=== PATIENT | male | born 1950 | race Caucasian/White ===

== ENCOUNTER 2022-12-21 23:43 | Inpatient (IN) | payer MEDICARE ==
[~2022-12-21] VITALS: Ht 175.3 cm; Wt 89.8 kg
[~2022-12-21 23:43] MED LIST: ALPR0.255 PO; CARV6.252 PO; CYCL10TA9 PO; HYDR-3980 PO; MOME13HF INH
--- NOTE | 2022-12-22 00:07 | NUR ---
EMANUEL FROM [facility] C/O ABD DISTENSION X2 DAYS, LLE EDEMA/SCROTUM SWELLING SINCE AM. F/C INSERTED 10PM. PT A/OX2; BASELINE. TOLERATING R/A WELL WITH NO RESP DISTRESS. SAFETY MEASURES IN PLACE.
--- NOTE | 2022-12-22 00:28 | NUR ---
urine and blood collected, sent to lab
--- NOTE | 2022-12-22 00:40 | NUR ---
urine output 2,200 ml
--- NOTE | 2022-12-22 00:41 | NUR ---
pt taken to ct via celine
[2022-12-22 00:44] LABS: BASOPHILS # (AUTO) 0.2 K/uL (0.0-0.2); EOSINOPHILS % (AUTO) 0.2 % (0.0-6.0); HEMATOCRIT 30 % (39-51); HEMOGLOBIN 9.9 g/dL (13.5-17.5); LYMPHOCYTES # (AUTO) 1.3 K/uL (0.8-4.8); LYMPHOCYTES % (AUTO) 6.1 % (20.0-44.0); MEAN CORPUSCULAR HGB CONC 33 g/dl (31.0-36.0); MEAN CORPUSCULAR VOLUME 98 fL (80-96); MONOCYTES # (AUTO) 1.7 K/uL (0.1-1.30); NEUTROPHILS % (AUTO) 84.7 % (43.0-81.0); PLATELET COUNT (AUTO) 332 K/uL (150-450); RED BLOOD CELL COUNT(AUTO) 3.06 MIL/uL (4.5-6.0); WHITE BLOOD COUNT (AUTO) 21.3 K/uL (4.3-11.0)
[2022-12-22 00:45] LABS: BILIRUBIN,URINE NEGATIVE (NEGATIVE); COLOR,URINE YELLOW (YELLOW); LEUKOCYTE ESTERASE ,URINE 1+ (NEGATIVE); NITRITE, URINE NEGATIVE (NEGATIVE); PROTEIN,URINE NEGATIVE (NEGATIVE); UGLUCOSE NEGATIVE (NEGATIVE); UROBILINOGEN,URINE 0.2 EU/dL (0.2)
[2022-12-22 00:46] LABS: BACTERIA,URINE Rare /HPF (None Seen); SQUAMOUS EPITHELIAL CELL,UR Few /HPF (None Seen)
[2022-12-22 01:00] LABS: CALCIUM, SERUM 9.3 mg/dL (8.5-10.1); CARBON DIOXIDE 16 mmol/L (21-32); CHLORIDE 103 mmol/L (98-107); CREATININE 5.3 mg/dL (0.6-1.3); GLUCOSE 133 mg/dL (74-106); POTASSIUM 4.5 mmol/L (3.5-5.1); SODIUM SERUM 136 mmol/L (136-145); UREA NITROGEN, BLOOD 86 mg/dL (7-18)
[2022-12-22 01:05] LABS: ALANINE AMINOTRANSFERASE 31 U/L (12-78); ALBUMIN 2.3 g/dL (3.4-5.0); ALKALINE PHOSPHATASE 112 U/L (46-116); ASPARTATE AMINOTRANSFERASE 24 U/L (15-37); BILIRUBIN,DIRECT 0.3 mg/dL (0.0-0.2); LIPASE 112 U/L (73-393); TOTAL PROTEIN, SERUM 6.9 g/dL (6.4-8.2)
--- NOTE | 2022-12-22 01:45 | NUR ---
US tech at bedside
[2022-12-22] MEDS ORDERED: CEFTRIAXONE 1GM BAG (ER ONLY) 1 GM/50 ML PIGGYBACK IV ONE (02:30)
[2022-12-22] MEDS ORDERED: CEFTRIAXONE 1GM BAG (ER ONLY) 50 ML IV ONE (02:47)
--- NOTE | 2022-12-22 02:53 | NUR ---
RM 321-1
[2022-12-22] MEDS ORDERED: MAG HYDROX/AL HYDROX/SIMETH 30 ML UDC PO PRN (03:00)
[2022-12-22] MEDS ORDERED: MAGNESIUM HYDROXIDE 30 ML UDC PO PRN (03:00)
[2022-12-22] MEDS ORDERED: Z GUARD REMEDY 4 OZ OINT TP PRN (03:00)
[2022-12-22] MEDS ORDERED: IV NS 0.9% 1,000 ML IV PRN (03:00)
[2022-12-22] MEDS ORDERED: HYDROCODONE/APAP 5/325MG TABLET PO PRN (03:00)
[2022-12-22] MEDS ORDERED: ONDANSETRON HCL/PF 4 MG/2 ML VIAL IVP PRN (03:00)
--- NOTE | 2022-12-22 03:04 | NUR ---
RM 321-2. REPORT GIVEN TO DEBORA GA
[2022-12-22] MEDS ORDERED: ENOXAPARIN SODIUM 100 MG/ML DISP.SYRIN SQ SCH (03:30)
--- NOTE | 2022-12-22 03:30 | NUR ---
LIVESTOCK FARMER NOTES ADMITTED A 72 Y/O MALE FROM [facility] WITH C/C OF ABD DISTENTION, BLE EDEMA AND SCROTAL EDEMA. CAME FROM ER VIA GURNEY. ON ROOM AIR SATURATING WELL NO SOB OR NOTED AT THIS TIME, TRANSFERRED PATIENT TO BED SAFELY AND SECURED. WITH IV ACCESS AT RAC #20G -SL AND LEFT WRIST #24G -SL PATENT AND INTACT NO SWELLING OR INFILTRATION NOTED AT THIS TIME; WITH FRANCISCO CATHETER FR 16 CAME FROM SNF CONNECTED TO URINE BAG WITH 600ML URINE OUTPUT; SKIN ASSESSMENT DONE PICTURES TAKEN AND RECORDED, BED BATH DONE. UNABLE TO GET HISTORY TO THE PATIENT PATIENT IS CONFUSED AND UNABLE TO COMPREHEND, HISTORY TAKEN FROM PREVIOUS RECORDS, ATTACHED PATIENT TO TELE MONITORING DEVICE, VITAL SIGN ARE TAKEN AND RECORDED, ALL ATTENDING PHYSICIAN INFORMED, ALL ADMISSION ORDERS CARRIED OUT; PATIENT ORIENTED TO THE UNIT, KEPT PATIENT WARM AND COMFORTABLE; KEPT CALL LIGHT WITHIN AT REACH; KEPT SIDE RAILS UP X 2 ALL THE TIME; WILL CONTINUE TO MONITOR.
--- NOTE | 2022-12-22 03:31 | NUR ---
pt transferred to [facility] 321-2 via acls protocol. vs wnl.
--- NOTE | 2022-12-22 05:30 | NUR ---
RN NOTES MRSA DONE AND SENT TO LABORATORY.
--- NOTE | 2022-12-22 06:34 | NUR ---
RN MS CLOSING NOTES PATIENT IS IN BED, A/O X 1 ABLE TO UNDERSTAND BELARUSIAN, CONFUSED. ON ROOM AIR SATURATING WELL NO SOB/ NOTED AT THIS TIME. WITH IV ACCESS AT RAC #20G AND LEFT FA #14G ON SL PATENT AND INTACT NO SWELLING OR INFILTRATION NOTED, NO PAIN OR DISCOMFORT NOTED, ATTACHED TO TELE MONITOR DEVICE, ALL DUE MEDICATIONS GIVEN, ALL NEEDS ATTENDED, KEPT BED ON MODERATE HIGH BACK REST POSITION, KEPT SIDE RAILS UP X 2 ALL THE TIME. KEPT CALL LIGHT WITHIN AT REACH. ENDORSED TO AM SHIFT FOR VIVEK.
--- NOTE | 2022-12-22 07:20 | NUR ---
RN OPENING NOTE RECEIVED PATIENT IN BED AWAKE, A/O X1, VERBALLY RESPONSIVE. NO SIGNS OF ACUTE DISTRESS NOTED. ON ROOM AIR, TOLERATING WELL, BREATHING EVEN AND UNLABORED. DENIES ANY PAIN AT THIS TIME. NOTED WITH IV ACCESS ON RIGHT AC #20G AND LEFT WRIST #24G, INTACT, SALINE LOCKED. WITH F/C INTACT DRAINING MATHEW COLORED URINE. NOTED WITH EDEMA ON LEFT LOWER EXTREMITY AND SCROTAL AREA. SAFETY MEASURE IN PLACE. BED IN LOW AND LOCKED POSITION, SIDE RAILS UP X2, CALL LIGHT PLACED WITHIN EASY REACH. WILL CONTINUE TO MONITOR PATIENT.
[2022-12-22 07:30] VITALS: BP 116/71; TEMP 97.4; O2SAT 99
--- NOTE | 2022-12-22 07:45 | NUR ---
RN NOTE PATIENT NOTED PULLED PERIPHERAL LINE ON RIGHT AC. PRESSURE DRESSING APPLIED TO SITE. NEW PERIPHERAL LINE INSERTED ON RIGHT WRIST #22G, WITH GOOD BLOOD RETURN. COVERED WITH TRANSPARENT DRESSING. PATIENT STARTED ON NS @75ML/HR.
[2022-12-22] MEDS: PANTOPRAZOLE 40 MG TABLET.DR PO SCH (08:06)
[2022-12-22] MEDS ORDERED: DOCU100C36 PO (08:38)
[2022-12-22] MEDS ORDERED: MULT-754 PO (08:38)
[2022-12-22] MEDS ORDERED: FOLI0.8T3 PO (08:38)
[2022-12-22] MEDS ORDERED: PANT40TA2 PO (08:38)
[2022-12-22] MEDS ORDERED: THIA100T74 PO (08:38)
[2022-12-22] MEDS ORDERED: NORM210S TP (08:38)
[2022-12-22] MEDS ORDERED: MAGN400O6 PO (08:38)
[2022-12-22] MEDS ORDERED: ACET-868 PO (08:38)
[2022-12-22] MEDS ORDERED: MAG30ORA PO (08:38)
[2022-12-22] MEDS ORDERED: CYAN-51 PO (08:38)
[2022-12-22] MEDS ORDERED: ALLA266C2 TP (08:38)
[2022-12-22] MEDS ORDERED: TRIA80CR12 TP (08:38)
[2022-12-22] MEDS ORDERED: AMIN887L21 PO (08:38)
[2022-12-22] MEDS ORDERED: NA P133E RC (08:38)
[2022-12-22] MEDS ORDERED: DIVA125C2 PO (08:38)
[2022-12-22] MEDS ORDERED: ASCO-340 PO (08:38)
--- NOTE | 2022-12-22 08:58 | NUR ---
WOUND CARE CONSULT: PT PRESENTS WITH SACRAL INTACT DEEP TISSUE INJURY, RASH/SKIN CONDITION TO BACK AND CHEST WELL LEFT LEG WITH WEEPING EDEMA TO SCROTUM, PRESENT ON ADMISSION. DR FERNANDEZ CALLED FOR SURGICAL CONSULT. DEFER TO PMD FOR RASH/SKIN CONDITION, UNKNOWN ETIOLOGY. DISCUSSED SKIN PROTECTION WITH NURSING STAFF. FRANCISCO CATHETER NOTED. PT IS ON ANTONY ISOFLEX LOW AIRLOSS BED. IN AGREEMENT WITH PLAN OF CARE. Addendum: 12/22/22 at 0900 by PATRICIA DICKENS WNDNU Amended: Links added.
[2022-12-22] MEDS ORDERED: APIXABAN 5 MG TABLET PO SCH (09:00)
--- NOTE | 2022-12-22 10:10 | NUR ---
RN NOTE GWENDOLYN WILSON HERE AND MADE AWARE REGARDING PATIENT'S LEFT LOWER EXTREMITY ULTRASOUND(EXTENSIVE OCCLUSIVE THROMBUS OF LCFV), PER MD HE'LL PUT ORDER FOR HEPARIN. AWAITING ORDER.
[2022-12-22 11:30] VITALS: BP 95/62; TEMP 97.6; O2SAT 95
--- NOTE | 2022-12-22 11:30 | NUR ---
RN Note Found Right wrist 22G pulled out during rounding. No redness or bleeding, catheter was intact. Inserted new IV site on right forearm 22G, patent, intact, and flushing well. Will continue monitoring. Addendum: 12/23/22 at 0222 by TAMARA HOPKINS RN Correction: the time was 2330
--- NOTE | 2022-12-22 13:50 | NUR ---
RN NOTE PATIENT PULLED OUT IV FLUIDS AND TRYING TO PULL OUT PERIPHERAL LINE AND FRANCISCO CATHETER. TRIED TO REDIRECT PATIENT BUT UNABLE DUE TO PATIENT'S POOR COGNITION. INFORMED MD AND RECEIVED ORDER FOR BILATERAL SOFT WRIST RESTRAINTS FOR SAFETY AND REDUCE RISKS OF PATIENT INJURY. ORDER CARRIED OUT.
[2022-12-22 16:00] VITALS: BP 109/76; TEMP 98; O2SAT 96
[2022-12-22] MEDS ORDERED: NA PHOS,M-B/NA PHOS,DI-BA 1 EA ENEMA RC PRN (16:00)
[2022-12-22] MEDS: DIVALPROEX SODIUM 125 MG CAP.SPRINK PO SCH (16:15)
[2022-12-22] MEDS ORDERED: PROSTAT (PYXIS) 30 ML UDC PO SCH (17:00)
[2022-12-22] MEDS: FOLIC ACID 1 MG TABLET PO SCH (17:10)
[2022-12-22] MEDS ORDERED: HEPARIN SODIUM, PORCINE 5000 UNITS/1 ML VIAL IV ONE (18:00)
[2022-12-22] MEDS: HEPARIN INFUSION/D5W 500 ML IV PRN (18:03)
--- NOTE | 2022-12-22 18:50 | NUR ---
RN CLOSING NOTE PATIENT IN BED AWAKE, A/O X1, CONFUSED. NO SIGNS OF ACUTE DISTRESS NOTED. STABLE ON ROOM AIR, NO SOB NOTED, BREATHING EVEN AND UNLABORED. IV ACCESS ON RIGHT WRIST #22G, INTACT AND PATENT RUNNING NS @90ML/HR AND LEFT FOREARM #22G, INTACT AND PATENT WITH HEPARIN DRIP ONGOING. F/C INTACT DRAINING MATHEW COLORED URINE. STILL NOTED WITH EDEMA ON LEFT LOWER EXTREMITY AND SCROTAL AREA. BILATERAL SOFT WRIST RESTRAINTS IN PLACE TO PREVENT PULLING OUT LINES. SAFETY MEASURE MAINTAINED. BED IN LOW AND LOCKED POSITION, SIDE RAILS UP X3, CALL LIGHT PLACED WITHIN EASY REACH. WILL ENDORSE TO NEXT SHIFT FOR CONTINUITY OF CARE.
--- NOTE | 2022-12-22 19:30 | NUR ---
RN Opening Note Pt awake, appears comfortable in bed. A/O*1, confused, follow only simple directions. No s/s of pain noted this time. On RA, breathing even, unlabored, no distress or SOB noted. IV access right wrist 22G SL, patent and intact. IV access left AC 22G SL, patent and intact, running Heparin drip at 1550units/H. hospital monitor captured sinus tachy at 110bpm. Pt has FC, draining well. Restraint on bilateral upper extremities. Checked CMS, intact. Provided hydration and reposition. Fall and safety precaution measures in place, bed alarm on, bed in low and locked position, call lights and table in easy reach, and side rails up*3. Will continue monitoring.
[2022-12-22 20:00] VITALS: BP 139/82; TEMP 97.7; O2SAT 93
--- NOTE | 2022-12-22 20:40 | NUR ---
RN Note Received a call from lab for critical lab value, lactic acid 2. Contacted . aware of the lab result.
[2022-12-22] MEDS: CEFTRIAXONE 1 G in IV D5W 50 ML IV SCH (20:57)
[2022-12-23] VITALS: BP_SYST 129; BP_SYST 143; BP_DIAS 75; BP_DIAS 80; TEMP 97.6; TEMP 98; O2SAT 94; O2SAT 99
--- NOTE | 2022-12-23 01:41 | NUR ---
RN Note Received a call for critical lab value of aPPT, 98.5 sec, from lab at 0127. Per Heparin protocol order. Hold heparin drip for one hour, then continue the drips at the decreased rate of 1300 units/h. Will continue monitoring. Addendum: 12/23/22 at 0150 by TAMARA HOPKINS RN Addition: Dr and Charge nurse aware of lab value and orders.
[2022-12-23 04:00] VITALS: BP 119/74; TEMP 97.7; O2SAT 94
[2022-12-23 06:20] LABS: BASOPHILS # (AUTO) 0.1 K/uL (0.0-0.2); BASOPHILS % (AUTO) 0.5 % (0.0-2.0); EOSINOPHILS % (AUTO) 1.1 % (0.0-6.0); HEMATOCRIT 30 % (39-51); HEMOGLOBIN 9.6 g/dL (13.5-17.5); LYMPHOCYTES # (AUTO) 1.5 K/uL (0.8-4.8); LYMPHOCYTES % (AUTO) 6.3 % (20.0-44.0); MEAN CORPUSCULAR HGB CONC 32 g/dl (31.0-36.0); MEAN CORPUSCULAR VOLUME 100 fL (80-96); MONOCYTES # (AUTO) 1.9 K/uL (0.1-1.30); MONOCYTES % (AUTO) 8.3 % (2.0-12.0); NEUTROPHILS # (AUTO) 19.2 K/uL (1.8-8.9); NEUTROPHILS % (AUTO) 83.8 % (43.0-81.0); PLATELET COUNT (AUTO) 382 K/uL (150-450); RED BLOOD CELL COUNT(AUTO) 3.01 MIL/uL (4.5-6.0)
--- NOTE | 2022-12-23 07:21 | NUR ---
RN OPENING NOTE RECEIVED PATIENT IN BED AWAKE, PATIENT IS A/O X1, VERBALLY RESPONSIVE. DENIES PAIN OR DISCOMFORT AT THIS TIME. ON ROOM AIR, TOLERATING WELL, BREATHING EVEN AND UNLABORED. NO SIGNS OF ACUTE DISTRESS NOTED. WITH IV ACCESS ON THE LEFT FA G 22 WITH ONGOING HEPARIN DRIP RUNNING AT 1300UNITS/H INFUSING WELL. WITH IV ACCESS ON THE RIGHT FORE ARM G 20 WITH ONGOING IVF OF NS RUNNING AT 90ML/HR INFUSING WELL.L WITH FRANCISCO CATHETER TO URINE BAG WITH LIGHT ORANGE TO LIGHT YELLOW URINE DRAINING VIA GRAVITY. WITH EDEMA ON THE LEFT LEG TO FOOT AND NOTED SCROTAL EDEMA. SAFETY MEASURE IN PLACE WITH BED IN LOW AND LOCKED POSITION, SIDE RAILS UP X2, CALL LIGHT PLACED WITHIN EASY REACH. WILL ENDORSE TO NEXT SHIFT FOR CONTINUITY OF CARE.
[2022-12-23 07:27] LABS: THYROID STIMULATING HORMONE 1.925 uIU/mL (0.358-3.74)
--- NOTE | 2022-12-23 07:39 | NUR ---
RN Closing Note Pt dosing off, appears comfortable in bed. A/O*1, confused, follow only simple directions. No s/s of pain noted this time. On RA, breathing even, unlabored, no distress or SOB noted. IV access right forearm 22G SL, patent and intact. IV access left AC 22G, patent and intact, running Heparin drip at 1300units/H. secured entrance monitor captured sinus tachy at 116bpm. Pt has FC, draining well and emptied. Restraint on bilateral upper extremities checked per protocol, CMS intact. Provided hydration, ROM and reposition as needed and per protocol. All needs attended. Fall and safety precaution measures in place and maintained, bed alarm on, bed in low and locked position, call lights and table in easy reach, and side rails up*3. Endorsed to day shift.
[2022-12-23 08:03] LABS: CALCIUM, SERUM 9.2 mg/dL (8.5-10.1); CREATININE 1.7 mg/dL (0.6-1.3); PHOSPHORUS 5.4 mg/dL (2.5-4.9); POTASSIUM 3.5 mmol/L (3.5-5.1)
[2022-12-23 08:12] LABS: MAGNESIUM 2.3 mg/dL (1.8-2.4)
--- NOTE | 2022-12-23 09:02 | NUR ---
MEAT AND POULTRY INSPECTOR NOTE LATEST PTT RESULT IS 60. NO CHANGES NECESSARY FOR HEPARIN DRIP. HEPARIN DRIP MAINTAINED AT 1300U/HR. NEXT PTT AT 1430. NO SIGNS AND SYMPTOMS OF BLEEDING NOTED. WILL CONTINUE WITH PLAN OF CARE.
[2022-12-23] MEDS: DOCUSATE SODIUM 100 MG CAPSULE PO SCH (09:41)
[2022-12-23] MEDS: ASCORBIC ACID 500 MG TABLET PO SCH (09:41)
[2022-12-23] MEDS: MULTIVITAMINS,THERAGRAN 1 UDTAB TABLET PO SCH (09:41)
[2022-12-23] MEDS: DIVALPROEX SODIUM 125 MG CAP.SPRINK PO SCH ×3 (09:42→17:19)
[2022-12-23] MEDS: THIAMINE HCL 100 MG TABLET PO SCH (09:42)
[2022-12-23] MEDS: CYANOCOBALAMIN 500 MCG TABLET PO SCH (09:42)
[2022-12-23] MEDS: PANTOPRAZOLE 40 MG TABLET.DR PO SCH (09:43)
[2022-12-23] MEDS: TRIAMCINOLONE ACETONIDE 0.1% CR 15 GM TUBE TP SCH (12:32)
[2022-12-23] MEDS: PROSOURCE / PROSTAT (PYXIS) 30 ML UDC PO SCH ×2 (12:33→17:19)
[2022-12-23] MEDS: HEPARIN INFUSION/D5W 500 ML IV PRN (12:52)
[2022-12-23] MEDS: IV NS 0.9% 1,000 ML IV PRN (15:11)
[2022-12-23 15:30] VITALS: BP 126/73; TEMP 98.5; O2SAT 97
--- NOTE | 2022-12-23 15:44 | NUR ---
CATALOGUE AND SPECIAL PRODUCTS MANAGER NOTE LATEST PTT 42.3. HEPARIN DRIP ADJUSTED AND INCREASED TO 1450 (FROM 1300) PER HOSPITAL PROTOCOL. NO SIGNS OF BLEEDING NOTED AT THIS TIME. WILL CONTINUE WITH PLAN OF CARE.
[2022-12-23] MEDS: FOLIC ACID 1 MG TABLET PO SCH (17:19)
[2022-12-23] MEDS: ACETAMINOPHEN 325 MG TABLET PO PRN (17:19)
[2022-12-23 18:29] LABS: CREATININE, URINE 87.8 MG/DL (30.0-125.0)
--- NOTE | 2022-12-23 19:00 | NUR ---
KINDERGARTEN AIDE NOTE PATIENT ENDORSED TO NEXT SHIFT FOR CONTINUITY OF CARE. IN STABLE CONDITION. WITH NO SIGNS OF BLEEDING NOTED.
--- NOTE | 2022-12-23 19:30 | NUR ---
NUCLEAR SECURITY OFFICER OPENING NOTES - RECEIVED PATIENT IN BED. A/O X1, CONFUSED AND ORIENTED TO NAME ONLY. BREATHING EVEN AND NON-LABORED ON ROOM AIR. NO C/O PAIN AT THIS TIME. HAS TELE MONITOR READING SINUS TACHYCARDIA WITH BBB AT 113 BPM. HAS THE FF IV ACCESS: RIGHT FOREARM #22G WITH NS RUNNING AT 90 ML/HR AND LEFT FOREARM #22G WITH HEPARIN DRIP INFUSING AT 1450 UNITS/HR. NO S/S OF INFILTRATION NOTED. HAS INDWELLING FRANCISCO CATHETER DRAINING CLEAR MATHEW URINE TO BAG BY GRAVITY. HAS BILATERAL SOFT WRIST RESTRAINTS. SEVERE EDEMA NOTED ON LEFT LOWER EXTREMITY. BRUISING NOTED ON BILATERAL UPPER ARM. SAFETY PRECAUTIONS IN PLACE: BED LOCKED AND IN LOW POSITION, SIDE RAILS UP X3, CALL LIGHT WITHIN REACH. WILL CONTINUE PLAN OF CARE.
[2022-12-23 20:00] VITALS: BP 121/61; TEMP 98.7; O2SAT 98
[2022-12-23 20:22] VITALS: BP 135/73; TEMP 101.8; O2SAT 88
[2022-12-23] MEDS: CEFTRIAXONE 1 G in IV D5W 50 ML IV SCH (20:35)
--- NOTE | 2022-12-23 22:37 | NUR ---
PTT 70.6, CALLED PX TO VERIFY IF WE WILL KEEP THE SAME RATE OR DECREASE DRIP. SPOKE WITH KEITH, KEEP THE SAME RATE FOR NOW AND RE-CHECK PTT AFTER 6 HOURS.
[2022-12-24] VITALS (7 sets, daily range): BP systolic 100–145; BP diastolic 51–81; TEMP 98.1–98.8; O2SAT 74–99
[2022-12-24] MEDS: IV NS 0.9% 1,000 ML IV PRN ×3 (03:20→17:39)
[2022-12-24] MEDS: TEMAZEPAM 15 MG CAPSULE PO PRN (03:20)
--- NOTE | 2022-12-24 03:40 | NUR ---
PRN RESTORIL 15 MG GIVEN TO PATIENT. THERE WERE TIMES THAT HE CLOSES HIS EYES BUT UPON CHECKING AGAIN, HE IS STILL AWAKE AND REMOVING BLANKETS.
--- NOTE | 2022-12-24 04:30 | NUR ---
PTT 53.6, NO CHANGE IN HEPARIN DRIP RATE. NO BLEEDING NOTED.
--- NOTE | 2022-12-24 07:10 | NUR ---
MEDICAL LIAISON CLOSING NOTES - PATIENT RESTING IN BED, FREQUENT RE-ORIENTATION NEEDED. NO SOB OR , TOLERATING ROOM AIR WELL. NO C/O PAIN OR DISCOMFORT. AFEBRILE. TELE MONITOR SHOWS SINUS TACHYCARDIA AT 116 BPM. LEFT FOREARM AND RIGHT FOREARM IV ACCESS INTACT, PATENT AND FLUSHING. ALL DUE MEDS GIVEN AND NEEDS ATTENDED. PERINEAL CARE RENDERED. ELEVATED LLE, TURNED AND REPOSITIONED EVERY 2 HOURS. CLOUDY MATHEW URINE OUTPUT NOTED. CIRCULATION AND SKIN COLOR CHECKED AND WNL. STRICT ASPIRATION PRECAUTION OBSERVED. SAFETY PRECAUTIONS MAINTAINED. WILL ENDORSE TO AM RN FOR VIVEK.
--- NOTE | 2022-12-24 07:20 | NUR ---
PRODUCTION GRIP CLOSING NOTES - RECEIVED PATIENT RESTING IN BED, FREQUENT RE-ORIENTATION NEEDED. NO SOB OR , TOLERATING ROOM AIR WELL. NO C/O PAIN OR DISCOMFORT. AFEBRILE. TELE MONITOR SHOWS SINUS TACHYCARDIA AT 117 BPM. LEFT FOREARM AND RIGHT FOREARM IV ACCESS C/D/I. . STRICT ASPIRATION PRECAUTION OBSERVED. SAFETY PRECAUTIONS MAINTAINED. WILL CONTINUE TO MONITOR Addendum: 12/24/22 at 0924 by INDERJIT DE LA CRUZ JR, RN OPENING NOTES
[2022-12-24] MEDS: PANTOPRAZOLE 40 MG TABLET.DR PO SCH (08:20)
[2022-12-24] MEDS: DOCUSATE SODIUM 100 MG CAPSULE PO SCH (08:32)
[2022-12-24] MEDS: MULTIVITAMINS,THERAGRAN 1 UDTAB TABLET PO SCH (08:32)
[2022-12-24] MEDS: ASCORBIC ACID 500 MG TABLET PO SCH (08:33)
[2022-12-24] MEDS: THIAMINE HCL 100 MG TABLET PO SCH (08:33)
[2022-12-24] MEDS: CYANOCOBALAMIN 500 MCG TABLET PO SCH (08:33)
[2022-12-24] MEDS: DIVALPROEX SODIUM 125 MG CAP.SPRINK PO SCH ×3 (08:33→16:23)
[2022-12-24] MEDS: PROSOURCE / PROSTAT (PYXIS) 30 ML UDC PO SCH ×2 (08:38→16:41)
[2022-12-24] MEDS: TRIAMCINOLONE ACETONIDE 0.1% CR 15 GM TUBE TP SCH (08:38)
[2022-12-24 09:22] LABS: BASOPHILS # (AUTO) 0.2 K/uL (0.0-0.2); BASOPHILS % (AUTO) 0.9 % (0.0-2.0); EOSINOPHILS % (AUTO) 3.9 % (0.0-6.0); HEMATOCRIT 28 % (39-51); HEMOGLOBIN 8.9 g/dL (13.5-17.5); LYMPHOCYTES # (AUTO) 1.6 K/uL (0.8-4.8); LYMPHOCYTES % (AUTO) 8.3 % (20.0-44.0); MEAN CORPUSCULAR HGB CONC 32 g/dl (31.0-36.0); MEAN CORPUSCULAR VOLUME 99 fL (80-96); MONOCYTES # (AUTO) 1.7 K/uL (0.1-1.30); MONOCYTES % (AUTO) 8.6 % (2.0-12.0); NEUTROPHILS # (AUTO) 15.4 K/uL (1.8-8.9); NEUTROPHILS % (AUTO) 78.3 % (43.0-81.0); PLATELET COUNT (AUTO) 309 K/uL (150-450); RED BLOOD CELL COUNT(AUTO) 2.83 MIL/uL (4.5-6.0); WHITE BLOOD COUNT (AUTO) 19.7 K/uL (4.3-11.0)
[2022-12-24 09:47] LABS: PHOSPHORUS 2.9 mg/dL (2.5-4.9); POTASSIUM 3.4 mmol/L (3.5-5.1)
[2022-12-24] MEDS: FOLIC ACID 1 MG TABLET PO SCH (17:00)
--- NOTE | 2022-12-24 18:37 | NUR ---
AMBULATORY SERVICES REPRESENTATIVE CLOSING NOTES - PATIENT RESTING IN BED, FREQUENT RE-ORIENTATION NEEDED. NO SOB OR , TOLERATING ROOM AIR WELL. NO C/O PAIN OR DISCOMFORT. AFEBRILE. TELE MONITOR SHOWS SINUS TACHYCARDIA AT 120 BPM. LEFT FOREARM AND RIGHT FOREARM IV ACCESS INTACT, PATENT AND FLUSHING. ALL DUE MEDS GIVEN AND NEEDS ATTENDED. PERINEAL CARE RENDERED. ELEVATED LLE, TURNED AND REPOSITIONED EVERY 2 HOURS. CLOUDY MATHEW URINE OUTPUT NOTED. CIRCULATION AND SKIN COLOR CHECKED AND WNL. STRICT ASPIRATION PRECAUTION OBSERVED. SAFETY PRECAUTIONS MAINTAINED. WILL ENDORSE TO PM NURSE FOR VIVEK.
--- NOTE | 2022-12-24 19:30 | NUR ---
CRISIS INTERVENTION COUNSELOR OPENING NOTES RECEIVED PT RESTING IN BED. A/O X1, ORIENTED TO PERSON ONLY. ON RA WITH NO SOB OR DISTRESS NOTED, NO C/O PAIN OR DISCOMFORT. AFEBRILE. ON DATABASE SOFTWARE TECHNICIAN SHOWS SINUS TACHYCARDIA AT 120 BPM. LEFT FOREARM AND RIGHT FOREARM IV ACCESS INTACT, PATENT AND FLUSHING, CURRENTLY RUNNING NS @ 90 ML/HR AND HEPARIN DRIP @ 1450 U/HR. FRANCISCO CATHETER IN PLACE. BILATERAL SOFT WRIST RESTRAINTS IN PLACE. SAFETY MEASURES IN PLACE: BED LOCKED AND IN LOW POSITION, SIDE RAILS UP X4, BED ALARM ON, CALL LIGHT AND TRAY TABLE WITHIN REACH.
[2022-12-24] MEDS: HEPARIN INFUSION/D5W 500 ML IV PRN (19:31)
[2022-12-24] MEDS: CEFTRIAXONE 1 G in IV D5W 50 ML IV SCH (20:41)
[2022-12-25 00:35] VITALS: BP 123/63; TEMP 98; O2SAT 96
[2022-12-25 04:03] LABS: BASOPHILS # (AUTO) 0.1 K/uL (0.0-0.2); BASOPHILS % (AUTO) 0.5 % (0.0-2.0); EOSINOPHILS % (AUTO) 4.3 % (0.0-6.0); HEMATOCRIT 26 % (39-51); HEMOGLOBIN 8.2 g/dL (13.5-17.5); LYMPHOCYTES # (AUTO) 2.3 K/uL (0.8-4.8); LYMPHOCYTES % (AUTO) 11.1 % (20.0-44.0); MEAN CORPUSCULAR HGB CONC 32 g/dl (31.0-36.0); MEAN CORPUSCULAR VOLUME 99 fL (80-96); MONOCYTES # (AUTO) 2.2 K/uL (0.1-1.30); MONOCYTES % (AUTO) 10.9 % (2.0-12.0); NEUTROPHILS # (AUTO) 14.9 K/uL (1.8-8.9); NEUTROPHILS % (AUTO) 73.2 % (43.0-81.0); PLATELET COUNT (AUTO) 302 K/uL (150-450); RED BLOOD CELL COUNT(AUTO) 2.57 MIL/uL (4.5-6.0); WHITE BLOOD COUNT (AUTO) 20.4 K/uL (4.3-11.0)
[2022-12-25 04:22] LABS: ALBUMIN 1.8 g/dL (3.4-5.0); BILIRUBIN,TOTAL 0.6 mg/dL (0.2-1.0); CALCIUM, SERUM 8.5 mg/dL (8.5-10.1); CREATININE 1.2 mg/dL (0.6-1.3); MAGNESIUM 1.9 mg/dL (1.8-2.4); PHOSPHORUS 3.1 mg/dL (2.5-4.9); POTASSIUM 3.6 mmol/L (3.5-5.1); TOTAL PROTEIN, SERUM 5.9 g/dL (6.4-8.2)
[2022-12-25 04:52] VITALS: BP 118/66; TEMP 97.2; O2SAT 96
[2022-12-25] MEDS: IV NS 0.9% 1,000 ML IV PRN ×2 (05:25→16:37)
[2022-12-25] MEDS: HEPARIN INFUSION/D5W 500 ML IV PRN (06:30)
--- NOTE | 2022-12-25 06:30 | NUR ---
RN NOTE: LATEST PTT 77.9. HEPARIN DRIP ADJUSTED AND DECREASED BY 170 U/HR. TOTAL RATE DECREASED FROM 1450 TO 1300 PER HOSPITAL PROTOCOL. NO SIGNS OF BLEEDING NOTED AT THIS TIME. NEXT PTT DRAW AT 1230. WILL CONTINUE WITH PLAN OF CARE.
--- NOTE | 2022-12-25 07:00 | NUR ---
ELECTRICAL AND ELECTRONIC ASSEMBLER CLOSING NOTES PT AWAKE IN BED. A/O X1, ORIENTED TO PERSON ONLY. STABLE ON RA WITH NO SOB OR DISTRESS NOTED, NO C/O PAIN OR DISCOMFORT. AFEBRILE. ON RN REHABILITATION SHOWS SINUS TACHYCARDIA AT 114 BPM. LEFT FOREARM #22G AND RIGHT FOREARM #22G, INTACT, PATENT, FLUSHING, CURRENTLY RUNNING NS @ 90 ML/HR AND HEPARIN DRIP @ 1300 U/HR. FRANCISCO CATHETER IN PLACE, TOTAL 800 ML OUTPUT. BILATERAL SOFT WRIST RESTRAINTS IN PLACE, CIRCULATION WNL. TURNED AND REPOSITIONED PER PROTOCOL. ALL CARE PROVIDED AND MEDS TOLERATED WELL. SAFETY MEASURES MAINTAINED: BED LOCKED AND IN LOW POSITION, SIDE RAILS UP X4, BED ALARM ON, CALL LIGHT AND TRAY TABLE WITHIN REACH. WILL ENDORSE VIVEK TO DAY SHIFT NURSE.
[2022-12-25 07:06] LABS: AFP, TUMOR MARKER <1.8 ng/mL (0.0-8.4)
--- NOTE | 2022-12-25 07:23 | NUR ---
CRESTER OPENING NOTES RECEIVED PT AWAKE IN BED IN NO ACUTE SIGNS OF DISTRESS. HOB ELEVATED. A/O X1 TO NAME ONLY. ABLE TO COMMUNICATE VERBALLY WITH CONFUSION AND FORGETFULNESS. NO C/O PAIN OR DISCOMFORTS AT THIS TIME. B/L SOFT WRIST RESTRAINTS IN PLACE, CIRCULATION WNL. ON ROOM AIR, TOLERATING WELL, BREATHING EVEN AND UNLABORED. ON TELE- MONITOR CURRENTLY READS ST, HR 113 BPM, NO C/O CARDIAC DISTRESS VOICED AT THIS TIME. HEPARIN DRIP AT 1300 U/HR (26ML/HR) INFUSING WELL TO IV ACCESS ON LFA G#22 AND IVF OF NS @90 ML/HR INFUSING WELL TO RFA G#22. FRANCISCO CATHETER IN PLACE WITH SLIGHTLY DARK YELLOW URINE OUTPUT NOTED. SAFETY MEASURES IN PLACE: BED LOCKED AND IN LOW POSITION, SIDE RAILS UP X3, BED ALARM ON, CALL LIGHT WITHIN REACH. WILL CONTINUE TO MONITOR PT.
[2022-12-25 07:30] VITALS: BP 127/72; TEMP 99.6; O2SAT 96
[2022-12-25] MEDS: DOCUSATE SODIUM 100 MG CAPSULE PO SCH (08:32)
[2022-12-25] MEDS: CYANOCOBALAMIN 500 MCG TABLET PO SCH (08:32)
[2022-12-25] MEDS: THIAMINE HCL 100 MG TABLET PO SCH (08:32)
[2022-12-25] MEDS: MULTIVITAMINS,THERAGRAN 1 UDTAB TABLET PO SCH (08:32)
[2022-12-25] MEDS: PANTOPRAZOLE 40 MG TABLET.DR PO SCH (08:32)
[2022-12-25] MEDS: ASCORBIC ACID 500 MG TABLET PO SCH (08:32)
[2022-12-25] MEDS: DIVALPROEX SODIUM 125 MG CAP.SPRINK PO SCH ×3 (08:33→16:32)
[2022-12-25] MEDS: PROSOURCE / PROSTAT (PYXIS) 30 ML UDC PO SCH ×3 (08:35→16:03)
[2022-12-25] MEDS: TRIAMCINOLONE ACETONIDE 0.1% CR 15 GM TUBE TP SCH (08:35)
[2022-12-25 09:07] LABS: *SPE A/G RATIO 0.5 (0.7-1.7); *SPE ALPHA-1-GLOBULIN 0.5 g/dL (0.0-0.4); *SPE ALPHA-2-GLOBULIN 1.1 g/dL (0.4-1.0); *SPE M-SPIKE 0.8 g/dL (Not Observed)
[2022-12-25 11:30] VITALS: BP 135/77; TEMP 99; O2SAT 93
--- NOTE | 2022-12-25 13:09 | NUR ---
RN NOTES PATIENT LATEST PTT 69.3, NO CHANGE IN HEPARIN DRIP PER HEPARIN DRIP PROTOCOL. REMAINS AT 1300 U/HR(26ML/HR). NEXT PTT DRAW WILL BE TOMORROW MORNING AT 1700.
[2022-12-25 16:00] VITALS: BP 152/71; TEMP 100.4; O2SAT 95
[2022-12-25] MEDS: ACETAMINOPHEN 325 MG TABLET PO PRN (16:03)
--- NOTE | 2022-12-25 16:06 | NUR ---
RN NOTES PT NOTED WITH ELEVATED TEMP 100.4F, PRN TYLENOL 650MG PO ADMINISTERED AT 1603. COOLING MEASURES IMPLEMENTED. WILL CONTINUE TO MONITOR.
[2022-12-25] MEDS: FOLIC ACID 1 MG TABLET PO SCH (17:23)
--- NOTE | 2022-12-25 18:35 | NUR ---
MACHINE LEAD BURNER CLOSING NOTES PT IN BED AWAKE AT THIS TIME. HOB ELEVATED. A/O X1 TO NAME ONLY. ABLE TO COMMUNICATE VERBALLY WITH CONFUSION AND FORGETFULNESS. PT WITH B/L SOFT WRIST RESTRAINTS IN PLACE, CIRCULATION WNL. TOLERATING ROOM AIR WELL, BREATHING EVEN AND UNLABORED, NO ACUTE RESPIRATORY DISTRESS NOTED DURING THE DAY. PT ON HEPARIN DRIP AT 1300 U/HR (26ML/HR) INFUSING WELL TO IV ACCESS ON LFA G#22 AND IVF OF NS @90 ML/HR INFUSING WELL TO RFA G#22. ON TELE- MONITOR CURRENTLY READS ST, HR 111 BPM, NO C/O CARDIAC DISTRESS VOICED. FRANCISCO CATHETER IN PLACE WITH SLIGHTLY DARK YELLOW URINE OUTPUT NOTED, FRANCISCO CARE DONE. ALL NEEDS/CARE PROVIDED WELL. SAFETY MEASURES IN PLACE: BED LOCKED AND IN LOW POSITION, SIDE RAILS UP X3, BED ALARM ON, CALL LIGHT WITHIN REACH. WILL ENDORSE VIVEK TO ATMOSPHERIC DRIER TENDER NURSE.
--- NOTE | 2022-12-25 19:36 | NUR ---
GRAIN OPERATOR OPENING NOTES RECEIVED PT IN BED AWAKE AOX1 CONFUSED,ON RM AIR MYRA WELL SAT 98% NO SOB/DISTRESS NOTED,NO SIGN OF PAIN/DISCOMFORT AT THIS TIME,B/L SOFT WRIST RESTRAINTS IN PLACE, CIRCULATION WNL.ON HEPARIN DRIP AT 1300 U/HR (26ML/HR) INFUSING WELL TO IV ACCESS ON LFA G#22 AND IVF OF NS @90 ML/HR INFUSING WELL TO RFA G#22. FRANCISCO CATHETER IN PLACE WITH YELLOW URINE OUTPUT NOTED. SAFETY MEASURES IN PLACE: BED LOCKED AND IN LOW POSITION, SIDE RAILS UP X3, BED ALARM ON, CALL LIGHT WITHIN REACH. WILL CONTINUE TO MONITOR.
[2022-12-25 20:00] VITALS: BP 123/74; TEMP 98.9; O2SAT 95
[2022-12-25] MEDS: CEFTRIAXONE 1 G in IV D5W 50 ML IV SCH (21:03)
[2022-12-26] VITALS: BP 130/72; TEMP 98.2; O2SAT 97
[2022-12-26] MEDS: IV NS 0.9% 1,000 ML IV PRN (03:18)
[2022-12-26 04:00] VITALS: BP_SYST 108; BP_SYST 134; BP_DIAS 57; BP_DIAS 77; TEMP 101.4; TEMP 98; O2SAT 96; O2SAT 98
[2022-12-26 06:34] LABS: BASOPHILS # (AUTO) 0.1 K/uL (0.0-0.2); BASOPHILS % (AUTO) 0.5 % (0.0-2.0); EOSINOPHILS % (AUTO) 4.2 % (0.0-6.0); HEMATOCRIT 28 % (39-51); HEMOGLOBIN 8.7 g/dL (13.5-17.5); LYMPHOCYTES # (AUTO) 1.6 K/uL (0.8-4.8); LYMPHOCYTES % (AUTO) 8.4 % (20.0-44.0); MEAN CORPUSCULAR HGB CONC 31 g/dl (31.0-36.0); MEAN CORPUSCULAR VOLUME 101 fL (80-96); MONOCYTES # (AUTO) 1.7 K/uL (0.1-1.30); MONOCYTES % (AUTO) 8.9 % (2.0-12.0); NEUTROPHILS # (AUTO) 15.2 K/uL (1.8-8.9); PLATELET COUNT (AUTO) 241 K/uL (150-450); RED BLOOD CELL COUNT(AUTO) 2.75 MIL/uL (4.5-6.0); WHITE BLOOD COUNT (AUTO) 19.4 K/uL (4.3-11.0)
--- NOTE | 2022-12-26 06:54 | NUR ---
NURSE HEAD CLOSING NOTES; PT IN BED AWAKE AOX1 CONFUSED,ON RM AIR MYRA WELL SAT 97% NO SOB/DISTRESS NOTED,NO SIGN OF PAIN/DISCOMFORT DURING SHIFT,B/L SOFT WRIST RESTRAINTS IN PLACE,NO REDNESS NOTED, CIRCULATION WNL.ON HEPARIN DRIP AT 1300 U/HR (26ML/HR) INFUSING WELL TO IV ACCESS ON LFA G#22 AND IVF OF NS @90 ML/HR INFUSING WELL TO RFA G#22.DUE MEDS GIVEN ORDER, FRANCISCO CATHETER IN PLACE WITH DARK YELLOW URINE OUTPUT 1300ML.KEPT PT CLEANED AND DRY AT ALL TIME,HOB ELEVATED MYRA, SAFETY MEASURES IN PLACE: BED LOCKED AND IN LOW POSITION, SIDE RAILS UP X3, BED ALARM ON, CALL LIGHT WITHIN REACH. WILL ENDORSED TO NEXT SHIFT.
[2022-12-26 06:59] LABS: CALCIUM, SERUM 8.7 mg/dL (8.5-10.1); MAGNESIUM 1.8 mg/dL (1.8-2.4); PHOSPHORUS 3.2 mg/dL (2.5-4.9); POTASSIUM 3.1 mmol/L (3.5-5.1)
--- NOTE | 2022-12-26 07:22 | NUR ---
ANESTHESIOLOGY RESIDENT OPENING NOTES PATIENT RECEIVED IN BED AWAKE, A/O X1 TO NAME ONLY. ABLE TO COMMUNICATE VERBALLY WITH CONFUSION AND FORGETFULNESS, DENIES PAIN OR DISCOMFORTS AT THIS TIME. PT WITH B/L SOFT WRIST RESTRAINTS IN PLACE, CIRCULATION WNL. ON ROOM AIR, TOLERATING WELL, BREATHING EVEN AND UNLABORED. ON TELE- MONITOR READS ST, HR 101 BPM AT THIS TIME., NO C/O CARDIAC DISTRESS VOICED AT THIS TIME. HEPARIN DRIP AT 1300 U/HR (26ML/HR) INFUSING WELL TO IV ACCESS ON LFA G#22 AND IVF OF NS @90 ML/HR INFUSING WELL TO RFA G#22. FRANCISCO CATHETER IN PLACE WITH SLIGHTLY DARK YELLOW URINE OUTPUT NOTED. SAFETY MEASURES IN PLACE: BED LOCKED AND IN LOW POSITION, SIDE RAILS UP X3, BED ALARM ON, CALL LIGHT WITHIN REACH. WILL CONTINUE TO MONITOR PT.
[2022-12-26] MEDS: HEPARIN INFUSION/D5W 500 ML IV PRN (07:31)
--- NOTE | 2022-12-26 07:35 | NUR ---
RN NOTES RECEIVED PATIENT LATEST PTT 63.7 THIS MORNING. NO CHANGE IN HEPARIN DRIP RATE PER HEPARIN DRIP PROTOCOL. REMAINS AT 1300 U/HR(26ML/HR). NEXT PTT DRAW WILL BE TOMORROW MORNING AT 1700.
[2022-12-26 08:00] VITALS: BP 123/69; TEMP 98.8; O2SAT 96
[2022-12-26] MEDS: ASCORBIC ACID 500 MG TABLET PO SCH (08:04)
[2022-12-26] MEDS: DOCUSATE SODIUM 100 MG CAPSULE PO SCH (08:04)
[2022-12-26] MEDS: PANTOPRAZOLE 40 MG TABLET.DR PO SCH (08:04)
[2022-12-26] MEDS: THIAMINE HCL 100 MG TABLET PO SCH (08:05)
[2022-12-26] MEDS: DIVALPROEX SODIUM 125 MG CAP.SPRINK PO SCH ×3 (08:05→16:47)
[2022-12-26] MEDS: MULTIVITAMINS,THERAGRAN 1 UDTAB TABLET PO SCH (08:05)
[2022-12-26] MEDS: CYANOCOBALAMIN 500 MCG TABLET PO SCH (08:05)
[2022-12-26 08:07] LABS: *ANA ANTI-CENTROMERE B AB 0.2 AI (0.0-0.9); *ANA ANTI-DNA(DS) AB, QN <1 IU/mL (0-9); *ANA ANTI-JO-1 <0.2 AI (0.0-0.9); *ANA ANTICHROMATIN ANTIBODY <0.2 AI (0.0-0.9); *ANA RNP ANTIBODIES 0.8 AI (0.0-0.9); *ANA SJOGREN'S ANTI-SS-A <0.2 AI (0.0-0.9); *ANA SJOGREN'S ANTI-SS-B <0.2 AI (0.0-0.9); *ANAANTI-SCLERODERMA-70 AB <0.2 AI (0.0-0.9); *ANASMITH AB <0.2 AI (0.0-0.9)
[2022-12-26] MEDS: PROSOURCE / PROSTAT (PYXIS) 30 ML UDC PO SCH ×3 (08:08→16:47)
[2022-12-26] MEDS: TRIAMCINOLONE ACETONIDE 0.1% CR 15 GM TUBE TP SCH (08:44)
[2022-12-26] MEDS: IV 1/2NS 1000 ML 1,000 ML IV PRN ×2 (11:29→21:50)
[2022-12-26] MEDS: POTASSIUM CHLORIDE 20 MEQ TAB.PRT.SR PO SCH ×2 (12:08→13:25)
--- NOTE | 2022-12-26 16:45 | NUR ---
RN NOTES PT IS FOR CT ABDOMEN PELVIS WITH CONTRAST TOMORROW MORNING (12/27/22). CALLED PT'S BROTHER, KATIE, OBTAINED TELEPHONE CONSENT. BROTHER STATED THAT HE'S NOT SURE IF THE PT HAD CONTRAST BEFORE.
--- NOTE | 2022-12-26 16:50 | NUR ---
RN NOTES CALLED [facility] OF RADIOLOGY DEPT, INFORMED OF THE PROCEDURE (CT ABD/PELVIS WITH CONTRAST TOMORROW AM)
[2022-12-26] MEDS: FOLIC ACID 1 MG TABLET PO SCH (17:21)
--- NOTE | 2022-12-26 18:45 | NUR ---
DIRECTOR TELEVISION NEWS CLOSING NOTES PT IN BED AT LYING AT SEMI-TREVIÑO'S POSITION. AWAKE, A/O X1-2. ABLE TO COMMUNICATE VERBALLY WITH CONFUSION AND FORGETFULNESS. PT WITH B/L SOFT WRIST RESTRAINTS IN PLACE, SKIN AND CIRCULATION WNL. ON ROOM AIR, TOLERATING WELL, BREATHING EVEN AND UNLABORED, NO ACUTE DISTRESS NOTED. PT ON HEPARIN DRIP AT 1300 U/HR (26ML/HR) INFUSING WELL TO IV ACCESS ON LFA G#22 AND IVF OF 1/2 NS AT 80 ML/HR INFUSING WELL TO RFA G#22. ON TELE-MONITOR CURRENTLY READS ST, HR 111 BPM, NO C/O CARDIAC DISTRESS VOICED. FRANCISCO IN PLACE WITH SLIGHTLY DARK YELLOW URINE OUTPUT NOTED, FRANCISCO CARE DONE. PT TURNED AND REPOSITIONED Q 2HRS AND PRN. ALL NEEDS AND CARE PROVIDED WELL. SAFETY MEASURES KEPT IN PLACE: BED LOCKED AND IN LOW POSITION, SIDE RAILS UP X3, BED ALARM ON, CALL LIGHT WITHIN REACH. WILL ENDORSE POC TO HEAD SAMPLER NURSE.
--- NOTE | 2022-12-26 19:10 | NUR ---
DYE RANGE FEEDER OPENING NOTE PT IS SITTING IN HIS BED WITH HOB ELEVATED AT 45 DEGREE. HE IS ON RA, TOLERATED WELL. NO S/S OF DISTRESS OR SOB. PT IS AWAKE AND ALERT, AO X 1 OR 2. PT HAS TWO IV ACCESSES: ONE IS AT HIS L FA, #22G, INFUSING 1/2 NS @80 ML/HR; AND ANOTHER ONE IS AT HIS L FA, INFUSING HEPARIN DRIP AT THE RATE OF 1300 U / HR (26 ML/HR). PT DOSE NOT HAVE S/S OF BLEEDING. IV SITES ARE PATENT AND INTACT. PT IS ON EXTERNAL COSMETIC ACCOUNT COORDINATOR, CURRENT READING ON THE MONITOR IS SR / ST WITH HR AT 90S TO 100S. PT HAS FRANCISCO CATHETER DRAINING CLOUDY,DARK YELLOW COLOR URINE FREELY. PT IS ON SOFT RESTRAINTS AT WRISTS BILATERAL, CHECKED THE CIRCULATION; NO ISSUES. SAFETY MEASURES ARE IN PLACED: BED IN LOWEST AND LOCKED POSITION; SIDE RAILS UP X 2; BED ALARM IS SET; CALL LIGHT AND TABLE ARE WITHIN REACH. WILL CONTINUE MONITORING THE PT AND PROVIDE THE CARE PT NEEDS.
[2022-12-26 19:38] VITALS: BP 140/80; TEMP 99.4; O2SAT 96
[2022-12-26 20:00] VITALS: BP_SYST 110; BP_SYST 134; BP_DIAS 62; BP_DIAS 71; TEMP 97.6; TEMP 98.4; O2SAT 95; O2SAT 96
[2022-12-26] MEDS: MORPHINE SULFATE INJ 2 MG/ML DISP.SYRIN IV PRN (21:11)
--- NOTE | 2022-12-26 21:12 | NUR ---
BULK LOADER NOTE PT STATED THAT HE WAS HAVING PAIN AT HIS L LOWER EXTREMITY AND HIS PAIN LEVEL IS 8/10. PRN IV MEDICATION, MORPHINE 4 MG, ADMINISTERED TO THE PT PER MD ORDER.
[2022-12-26] MEDS: TEMAZEPAM 15 MG CAPSULE PO PRN (22:29)
--- NOTE | 2022-12-26 22:29 | NUR ---
BARBACK NOTE PT HAS DIFFICULTIES TO FALL ASLEEP. PRN MEDICATION, RESTORIL 15 MG, ADMINISTERED TO THE PT PER MD ORDER.
[2022-12-27] VITALS: BP_SYST 110; BP_SYST 127; BP_DIAS 62; BP_DIAS 70; TEMP 97.6; TEMP 98.1; TEMP 98.7; O2SAT 95; O2SAT 96
[2022-12-27 01:06] LABS: IMMUNOGLOBULIN A, SERUM 476 mg/dL (61-437); IMMUNOGLOBULIN G, SERUM 802 mg/dL (603-1613); IMMUNOGLOBULIN M, SERUM 29 mg/dL (20-172)
[2022-12-27] MEDS: HEPARIN INFUSION/D5W 500 ML IV PRN ×2 (02:52→06:58)
--- NOTE | 2022-12-27 03:00 | NUR ---
BUILDING STONECUTTER NOTE CHANGED HEPARIN BAG AND CONTINUE THE INFUSING AT 1300 U/ HR (26 ML/H).
[2022-12-27 04:00] VITALS: BP 131/75; TEMP 98.4; TEMP 98.9; O2SAT 95
[2022-12-27 05:46] LABS: BASOPHILS # (AUTO) 0.1 K/uL (0.0-0.2); BASOPHILS % (AUTO) 0.4 % (0.0-2.0); EOSINOPHILS % (AUTO) 4.2 % (0.0-6.0); HEMATOCRIT 28 % (39-51); HEMOGLOBIN 8.8 g/dL (13.5-17.5); LYMPHOCYTES # (AUTO) 1.8 K/uL (0.8-4.8); LYMPHOCYTES % (AUTO) 11.6 % (20.0-44.0); MEAN CORPUSCULAR HGB CONC 32 g/dl (31.0-36.0); MEAN CORPUSCULAR VOLUME 100 fL (80-96); MONOCYTES # (AUTO) 1.2 K/uL (0.1-1.30); MONOCYTES % (AUTO) 7.5 % (2.0-12.0); NEUTROPHILS # (AUTO) 11.8 K/uL (1.8-8.9); NEUTROPHILS % (AUTO) 76.3 % (43.0-81.0); PLATELET COUNT (AUTO) 232 K/uL (150-450); RED BLOOD CELL COUNT(AUTO) 2.81 MIL/uL (4.5-6.0); WHITE BLOOD COUNT (AUTO) 15.5 K/uL (4.3-11.0)
--- NOTE | 2022-12-27 06:30 | NUR ---
MANUFACTURING ACCOUNTANT NOTE RECEIVED PT'S LAB RESULT FOR PTT: 76.1. DOCUMENTED IN PT'S CHART AND RECALCULATED THE DOSAGE ACCORDING TO WEIGHT BASED HEPARIN DOSING PROTOCOL. CURRENT HEPARIN IS 1300 U/HR. BASED ON THE PROTOCOL, NEED TO DECREASE 2 UNIT/KG/H, 150 U/HR. THE NEW HEPARIN DRIP RATE IS 1150 U/HR. ORDERED PTT AT 1200 ON 12/27/22 PER PROTOCOL. REDUCED PT'S INFUSING RATE TO 1150 U/H.
--- NOTE | 2022-12-27 07:01 | NUR ---
RADIO ELECTRONICS TECHNICIAN NOTE CURRENT HEPARIN DRIP RATE IS 1150 U/H (23 ML/H). NEXT PTT IS SCHEDULED AT 1200 ON 12/27/22. WILL ENDORSE NEXT SHIFT NURSE TO FOLLOW UP.
--- NOTE | 2022-12-27 07:13 | NUR ---
DIE FINISHER CLOSING NOTE PT IS SLEEPING IN BED WITH HOB ELEVATED AT 45 DEGREE; EASILY BEING AROUSED. HE IS ON 2 LPM OF OXYGEN VIA NC, TOLERATED WELL. NO S/S OF DISTRESS OR SOB. PT IS AWAKE AND ALERT, AO X 1 OR 2. PT HAS TWO IV ACCESSES: ONE IS AT HIS L FA, #22G, INFUSING 1/2 NS @80 ML/HR; AND ANOTHER ONE IS AT HIS L FA, INFUSING HEPARIN DRIP AT THE RATE OF 1150 U / HR (23 ML/HR). PT DOES NOT HAVE S/S OF BLEEDING. IV SITES ARE PATENT AND INTACT. PT IS ON EXTERNAL BUSINESS AND MARKETING TEACHER, CURRENT READING ON THE MONITOR IS SR / ST WITH HR AT 90S TO 100S. PT HAS FRANCISCO CATHETER DRAINING CLOUDY,DARK YELLOW COLOR URINE FREELY. PT IS ON SOFT RESTRAINTS AT WRISTS BILATERAL, CHECKED THE CIRCULATION; NO ISSUES. SAFETY MEASURES ARE IN PLACED: BED IN LOWEST AND LOCKED POSITION; SIDE RAILS UP X 2; BED ALARM IS SET; CALL LIGHT AND TABLE ARE WITHIN REACH. WILL ENDORSE NEXT SHIFT NURSE FOR CONTINUING PT CARE.
--- NOTE | 2022-12-27 07:30 | NUR ---
RESIDENTIAL TREATMENT STAFF NOTES PT IN BED, AWAKE, ALERT AND VERBALLY RESPONSIVE, WITH PERIODS OF CONFUSION, NO SIGN OF PAIN, BREATHING PATTERN NORMAL AND NON LABORED, ON HERPARIN DRIP, NO S/S OF BLEEDING, KEPT WARM AND COMFORTABLE IN BED.
[2022-12-27 07:34] VITALS: BP 127/67; TEMP 96.4; O2SAT 100
[2022-12-27] MEDS ORDERED: POTASSIUM CHLORIDE 20 MEQ TAB.PRT.SR PO ONE (08:00)
[2022-12-27 08:07] LABS: CALCIUM, SERUM 8.5 mg/dL (8.5-10.1); CREATININE 0.7 mg/dL (0.6-1.3); POTASSIUM 3.4 mmol/L (3.5-5.1)
[2022-12-27] MEDS: PANTOPRAZOLE 40 MG TABLET.DR PO SCH (09:09)
[2022-12-27] MEDS: THIAMINE HCL 100 MG TABLET PO SCH (09:10)
[2022-12-27] MEDS: DIVALPROEX SODIUM 125 MG CAP.SPRINK PO SCH ×3 (09:10→17:33)
[2022-12-27] MEDS: DOCUSATE SODIUM 100 MG CAPSULE PO SCH (09:10)
[2022-12-27] MEDS: CYANOCOBALAMIN 500 MCG TABLET PO SCH (09:10)
[2022-12-27] MEDS: ASCORBIC ACID 500 MG TABLET PO SCH (09:10)
[2022-12-27] MEDS: MULTIVITAMINS,THERAGRAN 1 UDTAB TABLET PO SCH (09:10)
[2022-12-27] MEDS ORDERED: IOHEXOL-300 100 ML VIAL IV ONE (11:11)
[2022-12-27] MEDS ORDERED: IV NS 0.9% 250 ML IV ONE (11:12)
[2022-12-27] MEDS: TRIAMCINOLONE ACETONIDE 0.1% CR 15 GM TUBE TP SCH (11:55)
[2022-12-27] MEDS: PROSOURCE / PROSTAT (PYXIS) 30 ML UDC PO SCH ×3 (11:55→17:32)
[2022-12-27] MEDS: IV 1/2NS 1000 ML 1,000 ML IV PRN (13:54)
--- NOTE | 2022-12-27 13:59 | NUR ---
RN MARINA NOTES FOLLOWED UP PTT RESULT FROM LAB, DRAWN AT 1200, SPOKE WITH STACEY, RESULT FOR PTT NOT AVAILABLE YET, WILL FOLLOW UP.
[2022-12-27 14:29] VITALS: O2SAT 100
[2022-12-27 16:00] VITALS: BP 113/68; TEMP 98.2; O2SAT 100
[2022-12-27 17:07] LABS: *ANTITHROMBIN III AG 122 % (72-124); *DILUTE PROTHROMBIN TIME (dPT) 34.5 sec (0.0-47.6); *THROMBIN TIME 13.7 sec (0.0-23.0); *dPT CONFIRM RATIO 0.96 Ratio (0.00-1.34); *dRVVT 41.8 sec (0.0-47.0)
[2022-12-27] MEDS: FOLIC ACID 1 MG TABLET PO SCH (17:33)
--- NOTE | 2022-12-27 18:43 | NUR ---
CLEANING AND WASHING EQUIPMENT OPERATOR NOTES PT IN BED, AWAKE, ALERT AND VERBALLY RESPONSIVE, WITH PERIODS OF BEING FORGETFUL, CONFUSED AT TIMES, PM MEDS GIVEN ORDERED, SEEN BY DR. LOPEZ TODAY, ALSO SEEN BY ONCOLOGY, ORDERS GIVEN, ASSISTED WITH MEALS, PM CARE PROVIDED, ALL NEEDS ATTENDED.
--- NOTE | 2022-12-27 19:30 | NUR ---
PUBLIC AID ELIGIBILITY ASSISTANT OPENING NOTES: PATIENT AWAKE ON BED, A/O X1-2, WITH CONFUSION, SOMETIMES FORGETFUL. ON ROOM AIR, BREATHING EVEN AND UNLABORED, NO OR SOB NOTED. NO COMPLAINTS OF PAIN OR DISCOMFORT NOTED AT THIS TIME. IV ACCESS AT RFA #22G RUNNING WITH 1/2 NS AT 80 ML/HR, AND ON LFA #22G WITH HEPARIN AT 23 ML/HR (1150 UNITS/HR) INFUSING WELL. WITH BILATERAL SOFT WRIST RESTRAINTS, NOTED WITH GOOD CIRCULATION. WITH FRANCISCO CATHETER, DRAINING TO MATHEW COLORED URINE. FALL AND SAFETY PRECAUTIONS IN PLACE. BED IN LOW AND LOCKED POSITION, SIDE RAILS UP X2. CALL LIGHT AND TABLE WITHIN EASY REACH.
[2022-12-27 20:00] VITALS: BP 125/65; TEMP 98.9; O2SAT 96
--- NOTE | 2022-12-27 21:17 | NUR ---
FLUX CORE WELDER NOTES: HOSPITALIST ON DUTY NIDIA RENEE NOTIFIED REGARDING PLAN PROCEDURE BONE MARROW BIOPSY AND ASPIRATION TOMORROW. PATIENT CURRENTLY ON HEPARIN DRIP. MD ORDERED TO CONTINUE HEPARIN DRIP. NOTED AND CARRIED OUT. NO S/S OF BLEEDING NOTED AT THIS TIME.
--- NOTE | 2022-12-27 21:47 | NUR ---
BASKETBALL SCOUT NOTES: PATIENT FOR BONE MARROW BIOPSY AND ASPIRATION PROCEDURE, CONSENT SECURED THRU TELEPHONE C/O HUDSON DOLL (DELMY) AT [id number]. WITNESSED BY LINDA PLEITEZ.
[2022-12-28] VITALS: BP 138/79; TEMP 98.9; O2SAT 97
[2022-12-28] MEDS ORDERED: HEPARIN INFUSION/D5W 500 ML IV ONE (00:18)
[2022-12-28] MEDS: HEPARIN INFUSION/D5W 500 ML IV PRN (00:41)
[2022-12-28] MEDS: IV 1/2NS 1000 ML 1,000 ML IV PRN ×2 (01:35→14:26)
[2022-12-28 04:00] VITALS: BP 116/70; TEMP 99; O2SAT 97
[2022-12-28 06:12] LABS: CALCIUM, SERUM 8.4 mg/dL (8.5-10.1); CREATININE 0.6 mg/dL (0.6-1.3); POTASSIUM 3.2 mmol/L (3.5-5.1)
--- NOTE | 2022-12-28 06:30 | NUR ---
STUDENT DEVELOPMENT SPECIALIST CLOSING NOTES: PATIENT AWAKE ON BED, A/O X1-2, WITH CONFUSION, SOMETIMES FORGETFUL. ON ROOM AIR, BREATHING EVEN AND UNLABORED, NO OR SOB NOTED. NO COMPLAINTS OF PAIN OR DISCOMFORT NOTED AT THIS TIME. IV ACCESS AT RFA #22G RUNNING WITH 1/2 NS AT 80 ML/HR, AND ON LFA #22G WITH HEPARIN AT 23 ML/HR (1150 UNITS/HR) INFUSING WELL. NO S/S OF BLEEDING. ON TELE MONITORING WITH CURRENT READING OF ST 101. WITH BILATERAL SOFT WRIST RESTRAINTS, NOTED WITH GOOD CIRCULATION. WITH FRANCISCO CATHETER, DRAINING TO MATHEW COLORED URINE, NO HEMATURIA AND SEDIMENTS NOTED WITH APPROXIMATELY 700 CC. SCHEDULED MEDICATIONS ADMINISTERED. FALL AND SAFETY PRECAUTIONS IN PLACE. BED IN LOW AND LOCKED POSITION, SIDE RAILS UP X2. CALL LIGHT AND TABLE WITHIN EASY REACH. ALL NEEDS ATTENDED. ENDORSED TO AM NURSE FOR VIVEK.
--- NOTE | 2022-12-28 07:55 | NUR ---
WHARF TENDER HEAD OPENING NOTE 321-2 RECEIVED PT RESTFUL IN BED,A&O x2,BREATHING WELL ON ROOM AIR,EVENLY AND UNLABORED,APPEARS TO BE COMFORTABLE,NO S/S OF DISCOMFORT NOTED.HAS A TELE WITH A READING OF ST 101.HAS A FRANCISCO INTACT AND DRAINING WELL.HAS AN IV ACCESS RFA #22G .HEPARIN DRIP WAS ON PAUSE WHEN WE RECEIVED THE PATIENT AWAITING THE DOCTOR TO RESPOND IF WE CONTINUE SINCE PATIENT HAS A BIOPSY PROCEDURE TODAY.ON SKIN ASSESSMENT SACRAL DTI NOTED,ARMS BRUISE,THIGH RASHES AND CHEST SCARS. SAFETY MEASURES IN PLACE ,BED IN A LOW POSITION &LOCKED,BED RAILS UP x3.CALL EPSTEIN AND TABLE WITHIN REACH CONTINUES WITH THE CURRENT PLAN OF CARE,HOURLY ROUNDING/PRN
[2022-12-28 08:00] VITALS: BP 124/69; TEMP 99.1; O2SAT 96
--- NOTE | 2022-12-28 08:03 | NUR ---
RN NOTE THE DOCTOR CONFIRMED THAT THE HEPARIN CAN BE RECOMMENCED AND STOPPED 4HRS PRIOR TO BIOPSY WHICH IS AT 6PM.HEPARIN RECOMMENCED AT 8AM AT A RATE OF 23ML/HR
--- NOTE | 2022-12-28 08:05 | NUR ---
MS RN NOTE PATIENT TRANSFERRED TO [facility],TELE REMOVED
[2022-12-28] MEDS: THIAMINE HCL 100 MG TABLET PO SCH (08:20)
[2022-12-28] MEDS: MULTIVITAMINS,THERAGRAN 1 UDTAB TABLET PO SCH (08:20)
[2022-12-28] MEDS: PROSOURCE / PROSTAT (PYXIS) 30 ML UDC PO SCH ×3 (08:20→17:00)
[2022-12-28] MEDS: ASCORBIC ACID 500 MG TABLET PO SCH (08:20)
[2022-12-28] MEDS: DOCUSATE SODIUM 100 MG CAPSULE PO SCH (08:21)
[2022-12-28] MEDS: PANTOPRAZOLE 40 MG TABLET.DR PO SCH (08:21)
[2022-12-28] MEDS: DIVALPROEX SODIUM 125 MG CAP.SPRINK PO SCH ×3 (08:21→17:05)
[2022-12-28] MEDS: CYANOCOBALAMIN 500 MCG TABLET PO SCH (08:22)
[2022-12-28] MEDS: TRIAMCINOLONE ACETONIDE 0.1% CR 15 GM TUBE TP SCH (08:30)
[2022-12-28] MEDS: POTASSIUM CHLORIDE 20 MEQ TAB.PRT.SR PO SCH ×2 (09:44→12:21)
[2022-12-28] MEDS: MORPHINE SULFATE INJ 2 MG/ML DISP.SYRIN IV PRN (14:01)
[2022-12-28 14:38] LABS: BASOPHILS % (AUTO) 0.4 % (0.0-2.0); EOSINOPHILS % (AUTO) 3.9 % (0.0-6.0); HEMATOCRIT 27 % (39-51); HEMOGLOBIN 8.3 g/dL (13.5-17.5); LYMPHOCYTES # (AUTO) 1.2 K/uL (0.8-4.8); LYMPHOCYTES % (AUTO) 9.9 % (20.0-44.0); MEAN CORPUSCULAR HGB CONC 32 g/dl (31.0-36.0); MEAN CORPUSCULAR VOLUME 98 fL (80-96); MONOCYTES # (AUTO) 1.1 K/uL (0.1-1.30); MONOCYTES % (AUTO) 9.4 % (2.0-12.0); NEUTROPHILS # (AUTO) 9.2 K/uL (1.8-8.9); NEUTROPHILS % (AUTO) 76.4 % (43.0-81.0); PLATELET COUNT (AUTO) 238 K/uL (150-450); WHITE BLOOD COUNT (AUTO) 12.1 K/uL (4.3-11.0)
[2022-12-28 16:00] VITALS: BP 122/65; TEMP 98.6; O2SAT 92
[2022-12-28] MEDS: FOLIC ACID 1 MG TABLET PO SCH (17:05)
[2022-12-28] MEDS: APIXABAN 5 MG TABLET PO SCH (17:06)
[2022-12-28] MEDS: ENSURE ENLIVE 237 ML LIQUID (VANILLA) PO SCH (17:07)
[2022-12-28 17:55] LABS: BAND % (MANUAL) 1 % (0.0-5.0); LYMPHOCYTES % (MANUAL) 8 % (16-48); MONOCYTES % (MANUAL) 8 % (0-11.0); NEUTROPHILS % (MANUAL) 83 (42-76)
--- NOTE | 2022-12-28 19:23 | NUR ---
MS RN CLOSING NOTE PT RESTFUL IN BED,A&O x2,BREATHING WELL ON ROOM AIR,EVENLY AND UNLABORED,APPEARS TO BE COMFORTABLE,NO S/S OF DISCOMORT NOTED.HAS A TELE WITH A READING OF ST 101.HAS A FRANCISCO INTACT AND DRAINING WELL.HAS AN IV ACCESS RFA #22G .HEPARIN DRIP WAS DISCONTINUED AND WAS COMMEND ON ELIQUIS TAB P.O &SAME ADMINISTERED. BIOPSY PROCEDURE WAS CANCELLED.HAD ALL DUE MEDS PER EMAR SAFETY MEASURES IN PLACE ,BED IN A LOW POSITION &LOCKED,BED RAILS UP x3.CALL EPSTEIN AND TABLE WITHIN REACH.WILL ENDORSE TO THE NURSES' REGISTRY DIRECTOR NURSE
--- NOTE | 2022-12-28 19:30 | NUR ---
MS RN OPENING NOTE RECEIVED PATIENT IN BED, AWAKE, ALERT AND ORIENTED X1-2 WITH CONFUSION. AFEBRILE AND NOT IN ANY FORM OF ACUTE DISTRESS. BREATHING EVEN AND NON LABORED. WITH IV ACCESS ON RFA 22G RUNNING WITH 1/2 NS AT 80ML/HR AND LFA 22G-SL. ON BILATERAL SOFT WRIST RESTRAINTS, NOTED WITH GOOD SKIN CIRCULATION. WITH INTACT FRANCISCO CATHETER, DRAINING WELL WITH MATHEW COLORED URINE OUTPUT. SAFETY MEASURES IN PLACE. KEPT BED IN LOCKED AND IN LOW POSITION. SIDE RAILS UP X2. ADVISED TO USE THE CALL LIGHT WHEN IN NEED OF ASSISTANCE.
[2022-12-28 21:10] VITALS: BP 120/71; TEMP 99.3; O2SAT 94
[2022-12-29] MEDS: IV 1/2NS 1000 ML 1,000 ML IV PRN (01:42)
[2022-12-29 05:57] LABS: CALCIUM, SERUM 8.5 mg/dL (8.5-10.1); CREATININE 0.6 mg/dL (0.6-1.3); POTASSIUM 3.2 mmol/L (3.5-5.1)
--- NOTE | 2022-12-29 06:30 | NUR ---
MS RN CLOSING NOTE PATIENT IN BED, SLEEPING INTERMITTENTLY. ALERT AND ORIENTED X1-2 WITH CONFUSION. AFEBRILE AND NOT IN ANY FORM OF ACUTE DISTRESS. BREATHING EVEN AND NON LABORED. WITH IV ACCESS ON RFA 22G RUNNING WITH 1/2 NS AT 80ML/HR AND LFA 22G-SL. ON BILATERAL SOFT WRIST RESTRAINTS, NOTED WITH GOOD SKIN CIRCULATION. WITH INTACT FRANCISCO CATHETER, DRAINING WELL WITH MATHEW COLORED URINE OUTPUT, NO HEMATURIA OR SEDIMENTS NOTED, WITH APPROX. 800ML URINE OUTPUT. SAFETY MEASURES IN PLACE. KEPT BED IN LOCKED AND IN LOW POSITION. SIDE RAILS UP X2. ADVISED TO USE THE CALL LIGHT WHEN IN NEED OF ASSISTANCE. ALL NURSING NEEDS ATTENDED. ENDORSED TO INCOMING SHIFT FOR CONTINUITY OF CARE.
[2022-12-29 07:00] VITALS: BP 136/70; TEMP 98.7; O2SAT 96
--- NOTE | 2022-12-29 07:20 | NUR ---
RN OPENING NOTE RECEIVED PATIENT IN BED, AWAKE. ALERT AND ORIENTED X1-2 WITH CONFUSION. AFEBRILE AND NOT IN ANY FORM OF ACUTE DISTRESS. BREATHING EVEN AND NON LABORED. WITH IV ACCESS ON RFA 22G RUNNING WITH 1/2 NS AT 80ML/HR AND LFA 22G-SL. ON BILATERAL SOFT WRIST RESTRAINTS, NOTED WITH GOOD SKIN CIRCULATION. WITH INTACT FRANCISCO CATHETER, DRAINING WELL WITH MATHEW COLORED URINE OUTPUT, NO HEMATURIA OR SEDIMENTS NOTED. SAFETY MEASURES IN PLACE. KEPT BED IN LOCKED AND IN LOW POSITION. SIDE RAILS UP X2. ADVISED TO USE THE CALL LIGHT WHEN IN NEED OF ASSISTANCE. WILL CONTINUE TO MONITOR.
[2022-12-29] MEDS: PANTOPRAZOLE 40 MG TABLET.DR PO SCH (07:34)
[2022-12-29] MEDS ORDERED: POTASSIUM CHLORIDE 20 MEQ TAB.PRT.SR PO ONE (08:00)
[2022-12-29] MEDS: DOCUSATE SODIUM 100 MG CAPSULE PO SCH (08:13)
[2022-12-29] MEDS: DIVALPROEX SODIUM 125 MG CAP.SPRINK PO SCH ×2 (08:13→13:01)
[2022-12-29] MEDS: APIXABAN 5 MG TABLET PO SCH (08:14)
[2022-12-29] MEDS: THIAMINE HCL 100 MG TABLET PO SCH (08:15)
[2022-12-29] MEDS: MULTIVITAMINS,THERAGRAN 1 UDTAB TABLET PO SCH (08:15)
[2022-12-29] MEDS: ASCORBIC ACID 500 MG TABLET PO SCH (08:15)
[2022-12-29] MEDS: CYANOCOBALAMIN 500 MCG TABLET PO SCH (08:15)
[2022-12-29] MEDS: ENSURE ENLIVE 237 ML LIQUID (VANILLA) PO SCH (08:15)
[2022-12-29] MEDS: PROSOURCE / PROSTAT (PYXIS) 30 ML UDC PO SCH ×2 (08:15→13:00)
[2022-12-29] MEDS: TRIAMCINOLONE ACETONIDE 0.1% CR 15 GM TUBE TP SCH (08:16)
[2022-12-29] MEDS ORDERED: APIXABAN 5 MG TABLET PO SCH (09:00)
[2022-12-29] MEDS ORDERED: APIX5TAB PO (09:52)
[2022-12-29] MEDS ORDERED: TAMS-12 PO (10:01)
[2022-12-29 14:07] LABS: *FACTOR II, DNA ANALYSIS Negative (.)
--- NOTE | 2022-12-29 14:30 | NUR ---
RN NOTE GIVEN REPORT TO [facility] AT THIS TIME TO KIKI (MAIK). [facility] ARRIVING AT 4PM FOR STATISTICS PROFESSOR.
--- NOTE | 2022-12-29 16:30 | NUR ---
RN DC NOTE. PT IS STABLE AND A/OX1-2. REMOVED ID AND IV AT THIS TIME. GOT CO SIGN FOR BELONGINGS AND DISCHARGE SUMMARY WITH JANETT (MAIK). CN AWARE. PT LEFT UNIT VIA GURNEY WITH SPORTS MEDICINE PHYSICIAN.
[2022-12-30 03:07] LABS: *CARD ANTI-CARDIOLIPIN AB IgA 12 APL U/mL (0-11); *CARD ANTI-CARDIOLIPIN AB IgG <9 GPL U/mL (0-14); *CARD ANTI-CARDIOLIPIN AB IgM <9 MPL U/mL (0-12)
== END 2022-12-29 16:31 | DRG 871 ==
LOC: ER 23:55 → TELE 12-22 02:40 → MED 12-28 09:41
PROVIDERS: ADMIT Nurse Practitioner Family; ATTEND Internal Medicine
DX: A41.9 Sepsis, unspecified organism (principal); N17.0 Acute kidney failure with tubular necrosis; N39.0 Urinary tract infection, site not specified; E44.0 Moderate protein-calorie malnutrition; E87.0 Hyperosmolality and hypernatremia; E87.20 Acidosis, unspecified; G93.40 Encephalopathy, unspecified; I82.412 Acute embolism and thrombosis of left femoral vein; I82.432 Acute embolism and thrombosis of left popliteal vein; N13.8 Other obstructive and reflux uropathy; R65.20 Severe sepsis without septic shock; F03.90 Unspecified dementia, unspecified severity, without behavioral disturbance, psychotic disturbance, mood disturbance, and anxiety; D47.2 Monoclonal gammopathy; D53.9 Nutritional anemia, unspecified; E78.5 Hyperlipidemia, unspecified; E87.6 Hypokalemia; E88.09 Other disorders of plasma-protein metabolism, not elsewhere classified; Z87.442 Personal history of urinary calculi; Z79.899 Other long term (current) drug therapy; Z66 Do not resuscitate; I50.9 Heart failure, unspecified; N43.3 Hydrocele, unspecified; N43.41 Spermatocele of epididymis, single; N40.1 Benign prostatic hyperplasia with lower urinary tract symptoms; R33.8 Other retention of urine; L89.156 Pressure-induced deep tissue damage of sacral region; N28.1 Cyst of kidney, acquired; S20.319A Abrasion of unspecified front wall of thorax, initial encounter; S20.419A Abrasion of unspecified back wall of thorax, initial encounter; X58.XXXA Exposure to other specified factors, initial encounter; Y93.9 Activity, unspecified; Y92.129 Unspecified place in nursing home as the place of occurrence of the external cause; N20.0 Calculus of kidney; I11.0 Hypertensive heart disease with heart failure; E11.65 Type 2 diabetes mellitus with hyperglycemia; N28.89 Other specified disorders of kidney and ureter; Z68.29 Body mass index [BMI] 29.0-29.9, adult
CPT/HCPCS: 36415; 71045-TC; 74178; 76770-TC; 76870-TC; 80048-TC; 80053-TC; 80076-TC; 81001; 81240; 81241; 82105; 82232; 82533; 82570-TC; 82607-TC; 82728-TC; 82784; 83090; 83540-TC; 83605-TC; 83615-TC; 83690-TC; 83735-TC; 83880; 84100-TC; 84155; 84165; 84300-TC; 84443-TC; 84484-TC; 84702-TC; 85025-TC; 85300; 85301; 85303; 85610-TC; 85613; 85670; 85705; 85730-TC; 85732; 86140-TC; 86147; 86225; 86235; 86334; 86431-TC; 86803; 87040-TC; 87081-TC; 87086-TC; 87806; 93926-TC; 93971-TC; 94799-TC; 97110-TC; 97530-TC; A4223; G0378; J0696; J1644; J2270; J3490; J7030; J7040; J7050; J7060; Q9967

== ENCOUNTER 2023-02-09 04:33 | Inpatient (IN) | payer MEDICARE, OTHER ==
[~2023-02-09] VITALS: Ht 175.3 cm; Wt 77.1 kg
[~2023-02-09 04:33] MED LIST changes: +ACET-868 PO; +ALLA266C2 TP; -ALPR0.255 PO; +AMIN887L21 PO; +APIX5TAB PO; +ASCO-340 PO; -CARV6.252 PO; +CYAN-51 PO; -CYCL10TA9 PO; +DIVA125C2 PO; +DOCU100C36 PO; +FOLI0.8T3 PO; -HYDR-3980 PO; +MAG30ORA PO; +MAGN400O6 PO; -MOME13HF INH; +MULT-754 PO; +NA P133E RC; +NORM210S TP; +PANT40TA2 PO; +TAMS-12 PO; +THIA100T74 PO; +TRIA80CR12 TP
[2023-02-09 05:37] LABS: BASOPHILS # (AUTO) 0.1 K/uL (0.0-0.2); EOSINOPHILS # (AUTO) 0.2 K/uL (0.0-0.7); HEMATOCRIT 33 % (39-51); HEMOGLOBIN 10.4 g/dL (13.5-17.5); LYMPHOCYTES # (AUTO) 1.9 K/uL (0.8-4.8); LYMPHOCYTES % (AUTO) 24.5 % (20.0-44.0); MEAN CORPUSCULAR HEMOGLOBIN 28 PG (26.0-33.0); MEAN CORPUSCULAR HGB CONC 32 g/dl (31.0-36.0); MEAN CORPUSCULAR VOLUME 89 fL (80-96); MONOCYTES # (AUTO) 0.8 K/uL (0.1-1.30); MONOCYTES % (AUTO) 10.6 % (2.0-12.0); NEUTROPHILS # (AUTO) 4.7 K/uL (1.8-8.9); NEUTROPHILS % (AUTO) 61.9 % (43.0-81.0); PLATELET COUNT (AUTO) 276 K/uL (150-450); RED BLOOD CELL COUNT(AUTO) 3.73 MIL/uL (4.5-6.0); RED CELL DISTRIBUTION WIDTH 16.5 % (11.5-15.0); WHITE BLOOD COUNT (AUTO) 7.6 K/uL (4.3-11.0)
[2023-02-09 05:43] LABS: APPEARANCE,URINE SLIGHTLY CLOUDY (CLEAR); BILIRUBIN,URINE NEGATIVE (NEGATIVE); BLOOD, URINE 3+ Ery/uL (NEGATIVE); COLOR,URINE AMBER (YELLOW); KETONES,URINE 1+ mg/dL (NEGATIVE); LEUKOCYTE ESTERASE ,URINE NEGATIVE (NEGATIVE); NITRITE, URINE POSITIVE (NEGATIVE); PH,URINE 6.5 (5.0-8.0); PROTEIN,URINE 1+ mg/dl (NEGATIVE); UGLUCOSE NEGATIVE (NEGATIVE)
[2023-02-09 05:50] LABS: INR 1.04 (0.91-1.10); PARTIAL THROMBOPLASTIN TIME 29.2 SEC (24.3-34.3); PROTHROMBIN TIME 10.9 SECS (9.2-11.1)
[2023-02-09 05:52] LABS: ADD URINE CULTURE YES; BACTERIA,URINE Moderate /HPF (None Seen); RBC,URINE TOO NUMEROUS TO COUN /HPF (0-2); SQUAMOUS EPITHELIAL CELL,UR Rare /HPF (None Seen)
[2023-02-09 05:57] LABS: CALCIUM, SERUM 9.5 mg/dL (8.5-10.1); CARBON DIOXIDE 23 mmol/L (21-32); CHLORIDE 106 mmol/L (98-107); GLUCOSE 105 mg/dL (74-106); POTASSIUM 3.8 mmol/L (3.5-5.1); SODIUM SERUM 140 mmol/L (136-145); UREA NITROGEN, BLOOD 20 mg/dL (7-18)
[2023-02-09 06:00] LABS: ALANINE AMINOTRANSFERASE 12 U/L (12-78); ALBUMIN 2.8 g/dL (3.4-5.0); ALKALINE PHOSPHATASE 71 U/L (46-116); ASPARTATE AMINOTRANSFERASE 11 U/L (15-37); BILIRUBIN,DIRECT 0.1 mg/dL (0.0-0.2); BILIRUBIN,TOTAL 0.3 mg/dL (0.2-1.0); TOTAL PROTEIN, SERUM 6.7 g/dL (6.4-8.2)
[2023-02-09 06:06] LABS: LACTIC ACID 1.2 mmol/L (0.4-2.0)
[2023-02-09 06:38] LABS: AMPHETAMINE, URINE NEGATIVE (NEGATIVE); BARBITURATE, URINE NEGATIVE (NEGATIVE); BENZODIAZEPINE, URINE NEGATIVE (NEGATIVE); CANNABINOID, URINE NEGATIVE (NEGATIVE); COCCAINE, URINE NEGATIVE (NEGATIVE); PHENCYCLIDINE SCREEN,URINE NEGATIVE (NEGATIVE)
[2023-02-09 06:51] LABS: OPIATE, URINE POSITIVE (NEGATIVE)
[2023-02-09] MEDS ORDERED: CEFTRIAXONE 1 G in IV D5W 50 ML IV ONE (07:30)
[2023-02-09] MEDS ORDERED: CEFTRIAXONE 1GM BAG (ER ONLY) 50 ML IV ONE (07:36)
[2023-02-09] MEDS ORDERED: ACET-868 PO (07:47)
[2023-02-09] MEDS ORDERED: SULF1TAB48 PO (07:47)
[2023-02-09] MEDS ORDERED: APIX5TAB PO (07:47)
[2023-02-09] MEDS ORDERED: QUET25TA PO (07:47)
[2023-02-09] MEDS ORDERED: TRAZ-182 PO (07:47)
[2023-02-09 11:00] VITALS: BP 120/80; TEMP 98.4
[2023-02-09 12:00] VITALS: BP 118/76; TEMP 98.4; O2SAT 99
[2023-02-09] MEDS: IV NS 0.9% 1,000 ML IV PRN (15:57)
[2023-02-09 16:00] VITALS: BP 107/81; TEMP 98.5; O2SAT 99
[2023-02-09] MEDS ORDERED: ACETAMINOPHEN 325 MG TABLET PO PRN ×2 (16:00)
[2023-02-09] MEDS ORDERED: ENOXAPARIN SODIUM 40 MG/0.4 ML DISP.SYRIN SQ SCH (16:00)
[2023-02-09] MEDS ORDERED: NA PHOS,M-B/NA PHOS,DI-BA 1 EA ENEMA RC PRN (16:00)
[2023-02-09] MEDS ORDERED: ONDANSETRON HCL/PF 4 MG/2 ML VIAL IVP PRN (16:00)
[2023-02-09] MEDS ORDERED: MAGNESIUM HYDROXIDE 30 ML UDC PO PRN ×2 (16:00)
[2023-02-09] MEDS ORDERED: Z GUARD REMEDY 4 OZ OINT TP PRN (16:00)
[2023-02-09] MEDS ORDERED: MAG HYDROX/AL HYDROX/SIMETH 30 ML UDC PO PRN ×2 (16:00)
[2023-02-09] MEDS: DIVALPROEX SODIUM 125 MG CAP.SPRINK PO SCH (16:38)
[2023-02-09] MEDS ORDERED: APIXABAN 5 MG TABLET PO SCH (17:00)
[2023-02-09 20:00] VITALS: BP 127/86; TEMP 98.6; O2SAT 99
[2023-02-09] MEDS: LORAZEPAM INJ 2 MG/ML VIAL IM/IV PRN (23:39)
[2023-02-10 00:27] VITALS: BP 127/86; TEMP 98.6; O2SAT 99
[2023-02-10 04:00] VITALS: BP 134/79; TEMP 98.2; O2SAT 96
[2023-02-10 05:57] LABS: BASOPHILS % (AUTO) 0.7 % (0.0-2.0); EOSINOPHILS # (AUTO) 0.1 K/uL (0.0-0.7); EOSINOPHILS % (AUTO) 1.8 % (0.0-6.0); HEMATOCRIT 35 % (39-51); LYMPHOCYTES # (AUTO) 1.5 K/uL (0.8-4.8); MEAN CORPUSCULAR HEMOGLOBIN 28 PG (26.0-33.0); MEAN CORPUSCULAR HGB CONC 32 g/dl (31.0-36.0); MEAN CORPUSCULAR VOLUME 87 fL (80-96); MONOCYTES # (AUTO) 0.7 K/uL (0.1-1.30); MONOCYTES % (AUTO) 9.6 % (2.0-12.0); NEUTROPHILS # (AUTO) 4.6 K/uL (1.8-8.9); NEUTROPHILS % (AUTO) 66.9 % (43.0-81.0); PLATELET COUNT (AUTO) 313 K/uL (150-450); RED BLOOD CELL COUNT(AUTO) 3.96 MIL/uL (4.5-6.0); RED CELL DISTRIBUTION WIDTH 16.6 % (11.5-15.0); WHITE BLOOD COUNT (AUTO) 6.9 K/uL (4.3-11.0)
[2023-02-10 06:18] LABS: CALCIUM, SERUM 9.5 mg/dL (8.5-10.1); CREATININE 0.7 mg/dL (0.6-1.3); PHOSPHORUS 3.8 mg/dL (2.5-4.9); POTASSIUM 4.1 mmol/L (3.5-5.1)
[2023-02-10 08:00] VITALS: BP 153/86; TEMP 98.4; O2SAT 99
[2023-02-10] MEDS: PANTOPRAZOLE 40 MG TABLET.DR PO SCH (08:20)
[2023-02-10] MEDS: DIVALPROEX SODIUM 125 MG CAP.SPRINK PO SCH ×3 (08:21→17:51)
[2023-02-10] MEDS: CEFTRIAXONE 1 G in IV D5W 50 ML IV SCH (08:21)
[2023-02-10] MEDS: DOCUSATE SODIUM 100 MG CAPSULE PO SCH (08:21)
[2023-02-10] MEDS: ACETAMINOPHEN 325 MG TABLET PO SCH (08:21)
[2023-02-10] MEDS: IV NS 0.9% 1,000 ML IV PRN (12:33)
[2023-02-10 13:00] VITALS: BP 155/82; TEMP 98.2; O2SAT 99
[2023-02-10] MEDS: LORAZEPAM INJ 2 MG/ML VIAL IM/IV PRN ×2 (13:12→20:53)
[2023-02-10 21:00] VITALS: BP 132/88; TEMP 98.4; O2SAT 99
[2023-02-11] MEDS: IV NS 0.9% 1,000 ML IV PRN ×2 (03:42→17:55)
[2023-02-11 05:00] VITALS: BP 147/82; TEMP 98.1; O2SAT 99
[2023-02-11 08:00] VITALS: BP 146/94; TEMP 97.4; O2SAT 93
[2023-02-11] MEDS: CEFTRIAXONE 1 G in IV D5W 50 ML IV SCH (08:15)
[2023-02-11] MEDS: PANTOPRAZOLE 40 MG TABLET.DR PO SCH ×2 (08:15→17:19)
[2023-02-11] MEDS: LORAZEPAM INJ 2 MG/ML VIAL IM/IV PRN ×2 (09:00→19:00)
[2023-02-11] MEDS: ACETAMINOPHEN 325 MG TABLET PO SCH (10:14)
[2023-02-11] MEDS: DIVALPROEX SODIUM 125 MG CAP.SPRINK PO SCH ×3 (10:14→17:18)
[2023-02-11] MEDS: DOCUSATE SODIUM 100 MG CAPSULE PO SCH (10:15)
[2023-02-11] MEDS: THERAHONEY GEL 1.5 OZ TUBE TP SCH (12:36)
[2023-02-11 16:00] VITALS: BP 128/79; TEMP 98.6; O2SAT 94
[2023-02-11 20:00] VITALS: BP 143/82; TEMP 97; O2SAT 100
[2023-02-12 04:00] VITALS: BP 119/62; TEMP 98.4; O2SAT 96
[2023-02-12] MEDS: IV NS 0.9% 1,000 ML IV PRN (06:33)
[2023-02-12] MEDS: PANTOPRAZOLE 40 MG TABLET.DR PO SCH (07:56)
[2023-02-12 08:00] VITALS: BP 105/61; TEMP 97.4; O2SAT 98
[2023-02-12] MEDS: THERAHONEY GEL 1.5 OZ TUBE TP SCH (09:00)
[2023-02-12] MEDS: DIVALPROEX SODIUM 125 MG CAP.SPRINK PO SCH ×3 (09:17→16:31)
[2023-02-12] MEDS: DOCUSATE SODIUM 100 MG CAPSULE PO SCH (09:17)
[2023-02-12] MEDS: ACETAMINOPHEN 325 MG TABLET PO SCH (09:18)
[2023-02-12] MEDS: LORAZEPAM INJ 2 MG/ML VIAL IM/IV PRN ×2 (13:46→23:48)
[2023-02-12 16:00] VITALS: BP 135/64; TEMP 97.7; O2SAT 100
[2023-02-12] MEDS: risperiDONE 0.25 MG TABLET PO SCH (17:37)
[2023-02-12 20:00] VITALS: BP 120/67; TEMP 98.4; O2SAT 100
[2023-02-13 04:00] VITALS: BP 127/74; TEMP 97.9; O2SAT 100
[2023-02-13 06:52] LABS: BASOPHILS # (AUTO) 0.1 K/uL (0.0-0.2); BASOPHILS % (AUTO) 1.1 % (0.0-2.0); EOSINOPHILS # (AUTO) 0.2 K/uL (0.0-0.7); EOSINOPHILS % (AUTO) 3.8 % (0.0-6.0); HEMATOCRIT 32 % (39-51); HEMOGLOBIN 10.5 g/dL (13.5-17.5); LYMPHOCYTES # (AUTO) 2.1 K/uL (0.8-4.8); LYMPHOCYTES % (AUTO) 32.2 % (20.0-44.0); MEAN CORPUSCULAR HEMOGLOBIN 28 PG (26.0-33.0); MEAN CORPUSCULAR HGB CONC 32 g/dl (31.0-36.0); MEAN CORPUSCULAR VOLUME 87 fL (80-96); MONOCYTES # (AUTO) 0.6 K/uL (0.1-1.30); MONOCYTES % (AUTO) 9.3 % (2.0-12.0); NEUTROPHILS # (AUTO) 3.5 K/uL (1.8-8.9); NEUTROPHILS % (AUTO) 53.6 % (43.0-81.0); PLATELET COUNT (AUTO) 271 K/uL (150-450); RED BLOOD CELL COUNT(AUTO) 3.72 MIL/uL (4.5-6.0); RED CELL DISTRIBUTION WIDTH 16.7 % (11.5-15.0); WHITE BLOOD COUNT (AUTO) 6.5 K/uL (4.3-11.0)
[2023-02-13 07:36] LABS: CALCIUM, SERUM 9.2 mg/dL (8.5-10.1); CREATININE 0.7 mg/dL (0.6-1.3); POTASSIUM 3.7 mmol/L (3.5-5.1)
[2023-02-13 08:00] VITALS: BP 130/87; TEMP 98.2; O2SAT 98
[2023-02-13] MEDS: PANTOPRAZOLE 40 MG TABLET.DR PO SCH (08:02)
[2023-02-13] MEDS: risperiDONE 0.25 MG TABLET PO SCH ×3 (08:03→16:30)
[2023-02-13] MEDS: DIVALPROEX SODIUM 125 MG CAP.SPRINK PO SCH ×3 (08:03→16:30)
[2023-02-13] MEDS: ACETAMINOPHEN 325 MG TABLET PO SCH (08:03)
[2023-02-13] MEDS: THERAHONEY GEL 1.5 OZ TUBE TP SCH (08:10)
[2023-02-13] MEDS: DOCUSATE SODIUM 100 MG CAPSULE PO SCH (08:10)
[2023-02-13] MEDS ORDERED: COLL30OI TP (12:08)
[2023-02-13] MEDS ORDERED: RISP0.2515 PO (12:08)
[2023-02-13 16:00] VITALS: BP 121/66; TEMP 98.4; O2SAT 100
[2023-02-13 20:00] VITALS: BP 116/76; TEMP 97.5; O2SAT 96
[2023-02-13] MEDS: LORAZEPAM INJ 2 MG/ML VIAL IM/IV PRN (22:03)
[2023-02-14 04:00] VITALS: BP 125/6; TEMP 99.3; O2SAT 97
[2023-02-14 08:00] VITALS: BP 128/85; TEMP 98.8; O2SAT 99
[2023-02-14] MEDS: risperiDONE 0.25 MG TABLET PO SCH ×3 (08:20→17:14)
[2023-02-14] MEDS: DOCUSATE SODIUM 100 MG CAPSULE PO SCH (08:21)
[2023-02-14] MEDS: DIVALPROEX SODIUM 125 MG CAP.SPRINK PO SCH ×3 (08:21→17:14)
[2023-02-14] MEDS: ACETAMINOPHEN 325 MG TABLET PO SCH (08:21)
[2023-02-14] MEDS: PANTOPRAZOLE 40 MG TABLET.DR PO SCH (08:21)
[2023-02-14] MEDS: THERAHONEY GEL 1.5 OZ TUBE TP SCH (08:22)
[2023-02-14] MEDS: LORAZEPAM INJ 2 MG/ML VIAL IM/IV PRN (13:48)
== END 2023-02-14 17:44 | DRG 673 ==
LOC: ER 04:39 → TELE1 09:32 → MEDSG1 02-10 10:22
PROVIDERS: ADMIT Internal Medicine; ATTEND Nurse Practitioner Acute Care
PROC: 0JB70ZZ Excision of Back Subcutaneous Tissue and Fascia, Open Approach (ICD-10-PCS; principal; 2023-02-13)
DX: T83.83XA Hemorrhage due to genitourinary prosthetic devices, implants and grafts, initial encounter (principal); G93.41 Metabolic encephalopathy; L89.153 Pressure ulcer of sacral region, stage 3; E44.0 Moderate protein-calorie malnutrition; F05 Delirium due to known physiological condition; N13.8 Other obstructive and reflux uropathy; N43.3 Hydrocele, unspecified; N43.41 Spermatocele of epididymis, single; N40.1 Benign prostatic hyperplasia with lower urinary tract symptoms; R33.8 Other retention of urine; D64.9 Anemia, unspecified; E88.09 Other disorders of plasma-protein metabolism, not elsewhere classified; Z86.718 Personal history of other venous thrombosis and embolism; R73.9 Hyperglycemia, unspecified; I50.9 Heart failure, unspecified; R31.9 Hematuria, unspecified; Z79.01 Long term (current) use of anticoagulants; Z68.25 Body mass index [BMI] 25.0-25.9, adult; Z87.440 Personal history of urinary (tract) infections; F31.9 Bipolar disorder, unspecified; Y84.8 Other medical procedures as the cause of abnormal reaction of the patient, or of later complication, without mention of misadventure at the time of the procedure; Y92.129 Unspecified place in nursing home as the place of occurrence of the external cause; R60.9 Edema, unspecified; I11.0 Hypertensive heart disease with heart failure; Z66 Do not resuscitate; E11.9 Type 2 diabetes mellitus without complications; F03.90 Unspecified dementia, unspecified severity, without behavioral disturbance, psychotic disturbance, mood disturbance, and anxiety; F29 Unspecified psychosis not due to a substance or known physiological condition
CPT/HCPCS: 36415; 70450-TC; 71045-TC; 80048-TC; 80076-TC; 81001; 83605-TC; 83735-TC; 84100-TC; 84484-TC; 85025-TC; 85730-TC; 87040-TC; 87081-TC; 87086-TC; C9803; G0378; J0696; J2060; J7030; J7050; J7060

== ENCOUNTER 2023-04-19 09:25 | Inpatient (IN) | payer MEDICARE, OTHER ==
[~2023-04-19] VITALS: Ht 177.8 cm; Wt 85.7 kg
[~2023-04-19 09:25] MED LIST changes: -ALLA266C2 TP; +COLL30OI TP; -CYAN-51 PO; -NORM210S TP; +QUET25TA PO; +RISP0.2515 PO; -TAMS-12 PO; +TRAZ-182 PO; -TRIA80CR12 TP
[2023-04-19 10:12] LABS: BASOPHILS # (AUTO) 0.2 K/uL (0.0-0.2); BASOPHILS % (AUTO) 2.9 % (0.0-2.0); EOSINOPHILS # (AUTO) 0.3 K/uL (0.0-0.7); EOSINOPHILS % (AUTO) 4.4 % (0.0-6.0); HEMATOCRIT 25 % (39-51); HEMOGLOBIN 8.5 g/dL (13.5-17.5); LYMPHOCYTES # (AUTO) 0.6 K/uL (0.8-4.8); LYMPHOCYTES % (AUTO) 8.2 % (20.0-44.0); MEAN CORPUSCULAR HEMOGLOBIN 27 PG (26.0-33.0); MEAN CORPUSCULAR HGB CONC 34 g/dl (31.0-36.0); MEAN CORPUSCULAR VOLUME 80 fL (80-96); MONOCYTES % (AUTO) 14.6 % (2.0-12.0); NEUTROPHILS % (AUTO) 69.9 % (43.0-81.0); PLATELET COUNT (AUTO) 145 K/uL (150-450); RED BLOOD CELL COUNT(AUTO) 3.14 MIL/uL (4.5-6.0); RED CELL DISTRIBUTION WIDTH 18.1 % (11.5-15.0); WHITE BLOOD COUNT (AUTO) 7.1 K/uL (4.3-11.0)
[2023-04-19 10:25] LABS: CALCIUM, SERUM 9.3 mg/dL (8.5-10.1); CARBON DIOXIDE 24 mmol/L (21-32); CHLORIDE 103 mmol/L (98-107); CREATININE 3.5 mg/dL (0.6-1.3); GLUCOSE 109 mg/dL (74-106); POTASSIUM 3.6 mmol/L (3.5-5.1); SODIUM SERUM 138 mmol/L (136-145); UREA NITROGEN, BLOOD 69 mg/dL (7-18)
[2023-04-19] MEDS ORDERED: FURO-145 PO (10:35)
[2023-04-19] MEDS ORDERED: ACET-2605 PO (10:35)
[2023-04-19] MEDS ORDERED: PETR113O TP (10:35)
[2023-04-19] MEDS ORDERED: RISP0.5T5 PO (10:35)
[2023-04-19] MEDS ORDERED: HYDR28.318 TP (10:35)
[2023-04-19] MEDS ORDERED: ALLA266C2 TP (10:35)
[2023-04-19] MEDS ORDERED: KETO120S5 TP (10:35)
[2023-04-19 10:44] LABS: ALANINE AMINOTRANSFERASE 9 U/L (12-78); ALBUMIN 2.6 g/dL (3.4-5.0); ALKALINE PHOSPHATASE 76 U/L (46-116); ASPARTATE AMINOTRANSFERASE 12 U/L (15-37); BILIRUBIN,DIRECT 0.1 mg/dL (0.0-0.2); BILIRUBIN,TOTAL 0.4 mg/dL (0.2-1.0); TOTAL PROTEIN, SERUM 6.4 g/dL (6.4-8.2)
[2023-04-19] MEDS ORDERED: IV NS 0.9% 500 ML BAG IV ONE (12:00)
[2023-04-19 15:10] LABS: HEMOGLOBIN 8.6 g/dL (13.5-17.5)
[2023-04-19] MEDS ORDERED: DEXTROSE 50%-WATER 50 ML DISP.SYRIN IV PRN (15:30)
[2023-04-19] MEDS ORDERED: MAGNESIUM HYDROXIDE 30 ML UDC PO PRN (15:30)
[2023-04-19] MEDS ORDERED: Z GUARD REMEDY 4 OZ OINT TP PRN (15:30)
[2023-04-19] MEDS ORDERED: ONDANSETRON HCL/PF 4 MG/2 ML VIAL IVP PRN (15:30)
[2023-04-19] MEDS ORDERED: ZOLPIDEM TARTRATE 5 MG TABLET PO PRN (15:30)
[2023-04-19] MEDS ORDERED: IV NS 0.9% 1,000 ML IV ONE (15:30)
[2023-04-19] MEDS ORDERED: MAG HYDROX/AL HYDROX/SIMETH 30 ML UDC PO PRN (15:30)
[2023-04-19 16:00] VITALS: BP 130/74; TEMP 98.4; O2SAT 98
[2023-04-19 16:50] LABS: APPEARANCE,URINE BLOODY (CLEAR)
[2023-04-19 16:51] LABS: COLOR,URINE RED (YELLOW)
[2023-04-19] MEDS: APIXABAN 5 MG TABLET PO SCH (16:53)
[2023-04-19] MEDS: risperiDONE 1 MG TABLET PO SCH (16:57)
[2023-04-19] MEDS: DIVALPROEX SODIUM 125 MG CAP.SPRINK PO SCH (16:57)
[2023-04-19] MEDS: BLOOD SUGAR DIAGNOSTIC 1 EACH STRIP IN SCH ×2 (17:24→21:24)
[2023-04-19] MEDS: INSULIN REGULAR, HUMAN 100 UNIT/ML 3 ML VIAL SQ PRN ×2 (17:24→21:25)
[2023-04-19 17:49] LABS: RBC,URINE TOO NUMEROUS TO COUN /HPF (0-2)
[2023-04-19 17:50] LABS: BACTERIA,URINE 1+ /HPF (None Seen); SQUAMOUS EPITHELIAL CELL,UR 0-2 /HPF (None Seen)
[2023-04-19 20:00] VITALS: BP 114/58; TEMP 99.1; O2SAT 93
[2023-04-19] MEDS: TRAZODONE 50 MG TABLET PO SCH (21:17)
[2023-04-20 06:21] LABS: BASOPHILS % (AUTO) 0.4 % (0.0-2.0); EOSINOPHILS # (AUTO) 0.1 K/uL (0.0-0.7); EOSINOPHILS % (AUTO) 0.7 % (0.0-6.0); HEMATOCRIT 25 % (39-51); HEMOGLOBIN 8.4 g/dL (13.5-17.5); LYMPHOCYTES # (AUTO) 1.1 K/uL (0.8-4.8); LYMPHOCYTES % (AUTO) 11.8 % (20.0-44.0); MEAN CORPUSCULAR HEMOGLOBIN 27 PG (26.0-33.0); MEAN CORPUSCULAR HGB CONC 34 g/dl (31.0-36.0); MEAN CORPUSCULAR VOLUME 81 fL (80-96); MONOCYTES # (AUTO) 1.6 K/uL (0.1-1.30); MONOCYTES % (AUTO) 16.5 % (2.0-12.0); NEUTROPHILS # (AUTO) 6.8 K/uL (1.8-8.9); NEUTROPHILS % (AUTO) 70.6 % (43.0-81.0); PLATELET COUNT (AUTO) 153 K/uL (150-450); RED BLOOD CELL COUNT(AUTO) 3.11 MIL/uL (4.5-6.0); RED CELL DISTRIBUTION WIDTH 17.8 % (11.5-15.0); WHITE BLOOD COUNT (AUTO) 9.6 K/uL (4.3-11.0)
[2023-04-20] MEDS: BLOOD SUGAR DIAGNOSTIC 1 EACH STRIP IN SCH ×4 (06:39→22:31)
[2023-04-20] MEDS: INSULIN REGULAR, HUMAN 100 UNIT/ML 3 ML VIAL SQ PRN ×4 (06:40→22:31)
[2023-04-20 07:10] LABS: CALCIUM, SERUM 9.1 mg/dL (8.5-10.1); CREATININE 2.3 mg/dL (0.6-1.3); PHOSPHORUS 4.7 mg/dL (2.5-4.9); POTASSIUM 3.3 mmol/L (3.5-5.1)
[2023-04-20 08:00] VITALS: BP 123/64; TEMP 99.2; O2SAT 93
[2023-04-20 08:07] LABS: MAGNESIUM 1.7 mg/dL (1.8-2.4)
[2023-04-20] MEDS: THIAMINE HCL 100 MG TABLET PO SCH (08:48)
[2023-04-20] MEDS: PANTOPRAZOLE 40 MG VIAL IV SCH (08:48)
[2023-04-20] MEDS: DOCUSATE SODIUM 100 MG CAPSULE PO SCH (08:49)
[2023-04-20] MEDS: DIVALPROEX SODIUM 125 MG CAP.SPRINK PO SCH ×3 (08:49→16:58)
[2023-04-20] MEDS: risperiDONE 1 MG TABLET PO SCH ×3 (08:49→16:58)
[2023-04-20] MEDS ORDERED: FUROSEMIDE 20 MG TABLET PO SCH (09:00)
[2023-04-20] MEDS: APIXABAN 5 MG TABLET PO SCH ×2 (09:00→16:58)
[2023-04-20] MEDS ORDERED: MAGNESIUM OXIDE 400 MG TABLET PO ONE (11:30)
[2023-04-20] MEDS ORDERED: POTASSIUM CHLORIDE 10 MEQ TABLET.SA PO ONE (11:30)
[2023-04-20] MEDS ORDERED: IV NS 0.9% 1,000 ML BAG IV ONE (13:00)
[2023-04-20 16:00] VITALS: BP 126/58; TEMP 98.6; O2SAT 97
[2023-04-20] MEDS: GLUCERNA SHAKE 237 ML CAN PO SCH (16:58)
[2023-04-20] MEDS: THERAHONEY GEL 1.5 OZ TUBE TP SCH (17:01)
[2023-04-20 20:00] VITALS: BP_SYST 134; BP_SYST 136; BP_DIAS 47; TEMP 97.8; O2SAT 93; O2SAT 97
[2023-04-20] MEDS: TRAZODONE 50 MG TABLET PO SCH (22:02)
[2023-04-21] MEDS: BLOOD SUGAR DIAGNOSTIC 1 EACH STRIP IN SCH ×4 (06:12→22:08)
[2023-04-21] MEDS: INSULIN REGULAR, HUMAN 100 UNIT/ML 3 ML VIAL SQ PRN (06:32)
[2023-04-21 06:50] LABS: BASOPHILS % (AUTO) 0.4 % (0.0-2.0); EOSINOPHILS # (AUTO) 0.1 K/uL (0.0-0.7); EOSINOPHILS % (AUTO) 0.7 % (0.0-6.0); HEMATOCRIT 24 % (39-51); HEMOGLOBIN 8.3 g/dL (13.5-17.5); LYMPHOCYTES # (AUTO) 1.1 K/uL (0.8-4.8); LYMPHOCYTES % (AUTO) 11.5 % (20.0-44.0); MEAN CORPUSCULAR HEMOGLOBIN 27 PG (26.0-33.0); MEAN CORPUSCULAR HGB CONC 34 g/dl (31.0-36.0); MEAN CORPUSCULAR VOLUME 81 fL (80-96); MONOCYTES # (AUTO) 1.8 K/uL (0.1-1.30); NEUTROPHILS # (AUTO) 6.8 K/uL (1.8-8.9); NEUTROPHILS % (AUTO) 69.4 % (43.0-81.0); PLATELET COUNT (AUTO) 147 K/uL (150-450); RED BLOOD CELL COUNT(AUTO) 3.02 MIL/uL (4.5-6.0); RED CELL DISTRIBUTION WIDTH 18.1 % (11.5-15.0); WHITE BLOOD COUNT (AUTO) 9.8 K/uL (4.3-11.0)
[2023-04-21 07:00] LABS: CREATININE 1.7 mg/dL (0.6-1.3); MAGNESIUM 1.8 mg/dL (1.8-2.4); PHOSPHORUS 4.1 mg/dL (2.5-4.9); POTASSIUM 3.1 mmol/L (3.5-5.1)
[2023-04-21 08:00] VITALS: BP 134/61; TEMP 99.3; O2SAT 93
[2023-04-21] MEDS: PANTOPRAZOLE 40 MG VIAL IV SCH (08:51)
[2023-04-21] MEDS: DIVALPROEX SODIUM 125 MG CAP.SPRINK PO SCH ×3 (08:51→18:25)
[2023-04-21] MEDS: APIXABAN 5 MG TABLET PO SCH ×2 (08:52→17:00)
[2023-04-21] MEDS: risperiDONE 1 MG TABLET PO SCH ×3 (08:52→18:24)
[2023-04-21] MEDS: THIAMINE HCL 100 MG TABLET PO SCH (08:52)
[2023-04-21] MEDS: DOCUSATE SODIUM 100 MG CAPSULE PO SCH (08:52)
[2023-04-21] MEDS: THERAHONEY GEL 1.5 OZ TUBE TP SCH (09:00)
[2023-04-21] MEDS: GLUCERNA SHAKE 237 ML CAN PO SCH ×2 (09:50→17:00)
[2023-04-21] MEDS ORDERED: POTASSIUM CHLORIDE 10 MEQ TABLET.SA PO ONE (11:30)
[2023-04-21 16:00] VITALS: BP 129/59; TEMP 100.3; O2SAT 95
[2023-04-21] MEDS: ACETAMINOPHEN 325 MG TABLET PO PRN (16:08)
[2023-04-21 20:00] VITALS: BP 122/59; TEMP 100; O2SAT 94
[2023-04-21] MEDS: TRAZODONE 50 MG TABLET PO SCH (22:08)
[2023-04-22] MEDS: BLOOD SUGAR DIAGNOSTIC 1 EACH STRIP IN SCH ×4 (06:44→22:00)
[2023-04-22 06:48] LABS: BASOPHILS % (AUTO) 0.3 % (0.0-2.0); EOSINOPHILS # (AUTO) 0.3 K/uL (0.0-0.7); EOSINOPHILS % (AUTO) 3.1 % (0.0-6.0); HEMATOCRIT 24 % (39-51); HEMOGLOBIN 7.8 g/dL (13.5-17.5); LYMPHOCYTES # (AUTO) 1.3 K/uL (0.8-4.8); LYMPHOCYTES % (AUTO) 14.1 % (20.0-44.0); MEAN CORPUSCULAR HEMOGLOBIN 27 PG (26.0-33.0); MEAN CORPUSCULAR HGB CONC 33 g/dl (31.0-36.0); MEAN CORPUSCULAR VOLUME 81 fL (80-96); MONOCYTES # (AUTO) 1.6 K/uL (0.1-1.30); MONOCYTES % (AUTO) 18.3 % (2.0-12.0); NEUTROPHILS # (AUTO) 5.7 K/uL (1.8-8.9); NEUTROPHILS % (AUTO) 64.2 % (43.0-81.0); PLATELET COUNT (AUTO) 148 K/uL (150-450); RED BLOOD CELL COUNT(AUTO) 2.92 MIL/uL (4.5-6.0); RED CELL DISTRIBUTION WIDTH 17.9 % (11.5-15.0); WHITE BLOOD COUNT (AUTO) 8.9 K/uL (4.3-11.0)
[2023-04-22 06:49] LABS: CREATININE 1.7 mg/dL (0.6-1.3); MAGNESIUM 1.7 mg/dL (1.8-2.4); POTASSIUM 3.4 mmol/L (3.5-5.1)
[2023-04-22] MEDS: risperiDONE 1 MG TABLET PO SCH ×3 (08:40→16:50)
[2023-04-22] MEDS: THIAMINE HCL 100 MG TABLET PO SCH (08:40)
[2023-04-22] MEDS: GLUCERNA SHAKE 237 ML CAN PO SCH ×2 (08:40→17:25)
[2023-04-22] MEDS: DOCUSATE SODIUM 100 MG CAPSULE PO SCH (08:40)
[2023-04-22] MEDS: DIVALPROEX SODIUM 125 MG CAP.SPRINK PO SCH ×3 (08:40→16:49)
[2023-04-22] MEDS: APIXABAN 5 MG TABLET PO SCH ×2 (08:41→16:50)
[2023-04-22] MEDS: PANTOPRAZOLE 40 MG/PACK PACK PO SCH (08:41)
[2023-04-22] MEDS: THERAHONEY GEL 1.5 OZ TUBE TP SCH (08:56)
[2023-04-22] MEDS ORDERED: POTASSIUM CHLORIDE 10 MEQ TABLET.SA PO ONE (11:00)
[2023-04-22] MEDS ORDERED: MAGNESIUM OXIDE 400 MG TABLET PO ONE (11:00)
[2023-04-22] MEDS ORDERED: GUAIFENESIN/D-METHORPHAN HB 5 ML UDC PO PRN (11:30)
[2023-04-22] MEDS: INSULIN REGULAR, HUMAN 100 UNIT/ML 3 ML VIAL SQ PRN ×2 (11:36→23:44)
[2023-04-22 14:05] VITALS: BP 121/70; TEMP 99.1; O2SAT 100
[2023-04-22 14:25] VITALS: BP 130/54; TEMP 100.2; O2SAT 97
[2023-04-22 16:00] VITALS: BP 118/51; TEMP 100.9; O2SAT 97
[2023-04-22] MEDS: ACETAMINOPHEN 325 MG TABLET PO PRN (16:50)
[2023-04-22] MEDS: TRAZODONE 50 MG TABLET PO SCH (22:01)
[2023-04-23] VITALS: BP 116/58; TEMP 99; O2SAT 97
[2023-04-23] MEDS: ACETAMINOPHEN 325 MG TABLET PO PRN ×2 (00:43→21:15)
[2023-04-23 07:31] LABS: BASOPHILS % (AUTO) 0.3 % (0.0-2.0); EOSINOPHILS # (AUTO) 0.4 K/uL (0.0-0.7); EOSINOPHILS % (AUTO) 4.7 % (0.0-6.0); HEMATOCRIT 25 % (39-51); HEMOGLOBIN 8.3 g/dL (13.5-17.5); LYMPHOCYTES # (AUTO) 1.4 K/uL (0.8-4.8); LYMPHOCYTES % (AUTO) 15.7 % (20.0-44.0); MEAN CORPUSCULAR HEMOGLOBIN 27 PG (26.0-33.0); MEAN CORPUSCULAR HGB CONC 33 g/dl (31.0-36.0); MEAN CORPUSCULAR VOLUME 82 fL (80-96); MONOCYTES # (AUTO) 1.2 K/uL (0.1-1.30); MONOCYTES % (AUTO) 14.1 % (2.0-12.0); NEUTROPHILS # (AUTO) 5.7 K/uL (1.8-8.9); NEUTROPHILS % (AUTO) 65.2 % (43.0-81.0); PLATELET COUNT (AUTO) 173 K/uL (150-450); RED BLOOD CELL COUNT(AUTO) 3.06 MIL/uL (4.5-6.0); RED CELL DISTRIBUTION WIDTH 18.1 % (11.5-15.0); WHITE BLOOD COUNT (AUTO) 8.7 K/uL (4.3-11.0)
[2023-04-23 07:39] LABS: CALCIUM, SERUM 9.5 mg/dL (8.5-10.1); CREATININE 1.5 mg/dL (0.6-1.3); MAGNESIUM 2.1 mg/dL (1.8-2.4); PHOSPHORUS 4.2 mg/dL (2.5-4.9); POTASSIUM 3.7 mmol/L (3.5-5.1)
[2023-04-23 08:00] VITALS: BP 126/67; TEMP 98.6; O2SAT 100
[2023-04-23] MEDS: BLOOD SUGAR DIAGNOSTIC 1 EACH STRIP IN SCH ×4 (08:01→22:00)
[2023-04-23] MEDS: THIAMINE HCL 100 MG TABLET PO SCH (08:37)
[2023-04-23] MEDS: DOCUSATE SODIUM 100 MG CAPSULE PO SCH (08:37)
[2023-04-23] MEDS: DIVALPROEX SODIUM 125 MG CAP.SPRINK PO SCH ×3 (08:37→17:08)
[2023-04-23] MEDS: risperiDONE 1 MG TABLET PO SCH ×3 (08:37→17:08)
[2023-04-23] MEDS: PANTOPRAZOLE 40 MG/PACK PACK PO SCH (08:37)
[2023-04-23] MEDS: GLUCERNA SHAKE 237 ML CAN PO SCH ×2 (08:37→17:00)
[2023-04-23] MEDS: APIXABAN 5 MG TABLET PO SCH ×2 (08:38→17:00)
[2023-04-23] MEDS: THERAHONEY GEL 1.5 OZ TUBE TP SCH (08:38)
[2023-04-23] MEDS: INSULIN REGULAR, HUMAN 100 UNIT/ML 3 ML VIAL SQ PRN (12:22)
[2023-04-23 16:00] VITALS: BP 136/64; TEMP 99.2; O2SAT 100
[2023-04-23] MEDS: TRAZODONE 50 MG TABLET PO SCH (21:15)
[2023-04-24 04:00] VITALS: BP 109/57; TEMP 98.4; O2SAT 95
[2023-04-24] MEDS: GLUCERNA SHAKE 237 ML CAN PO SCH ×2 (07:58→17:38)
[2023-04-24 08:00] VITALS: BP 117/63; TEMP 99; O2SAT 95
[2023-04-24] MEDS: APIXABAN 5 MG TABLET PO SCH ×2 (09:00→17:38)
[2023-04-24] MEDS: THERAHONEY GEL 1.5 OZ TUBE TP SCH (09:40)
[2023-04-24] MEDS: PANTOPRAZOLE 40 MG/PACK PACK PO SCH (09:46)
[2023-04-24] MEDS: THIAMINE HCL 100 MG TABLET PO SCH (09:46)
[2023-04-24] MEDS: DIVALPROEX SODIUM 125 MG CAP.SPRINK PO SCH ×3 (09:46→17:38)
[2023-04-24] MEDS: DOCUSATE SODIUM 100 MG CAPSULE PO SCH (09:46)
[2023-04-24] MEDS: risperiDONE 1 MG TABLET PO SCH ×3 (09:46→17:38)
[2023-04-24] MEDS: BLOOD SUGAR DIAGNOSTIC 1 EACH STRIP IN SCH ×3 (12:16→21:43)
[2023-04-24 16:00] VITALS: BP 113/44; TEMP 98.8; O2SAT 96
[2023-04-24 21:07] VITALS: BP 127/67; TEMP 99.5; O2SAT 96
[2023-04-24] MEDS: TRAZODONE 50 MG TABLET PO SCH (21:40)
[2023-04-25 04:00] VITALS: BP 130/74; TEMP 98.6; O2SAT 96
[2023-04-25 07:36] LABS: BASOPHILS % (AUTO) 0.3 % (0.0-2.0); EOSINOPHILS # (AUTO) 0.4 K/uL (0.0-0.7); EOSINOPHILS % (AUTO) 3.7 % (0.0-6.0); HEMATOCRIT 24 % (39-51); HEMOGLOBIN 8.1 g/dL (13.5-17.5); LYMPHOCYTES # (AUTO) 1.7 K/uL (0.8-4.8); LYMPHOCYTES % (AUTO) 16.5 % (20.0-44.0); MEAN CORPUSCULAR HEMOGLOBIN 27 PG (26.0-33.0); MEAN CORPUSCULAR HGB CONC 34 g/dl (31.0-36.0); MEAN CORPUSCULAR VOLUME 81 fL (80-96); MONOCYTES # (AUTO) 1.4 K/uL (0.1-1.30); MONOCYTES % (AUTO) 12.8 % (2.0-12.0); NEUTROPHILS # (AUTO) 7.1 K/uL (1.8-8.9); NEUTROPHILS % (AUTO) 66.7 % (43.0-81.0); PLATELET COUNT (AUTO) 218 K/uL (150-450); RED BLOOD CELL COUNT(AUTO) 2.96 MIL/uL (4.5-6.0); RED CELL DISTRIBUTION WIDTH 17.3 % (11.5-15.0); WHITE BLOOD COUNT (AUTO) 10.6 K/uL (4.3-11.0)
[2023-04-25 07:44] LABS: CALCIUM, SERUM 8.8 mg/dL (8.5-10.1); CREATININE 1.1 mg/dL (0.6-1.3); POTASSIUM 3.6 mmol/L (3.5-5.1)
[2023-04-25 07:57] LABS: MAGNESIUM 1.8 mg/dL (1.8-2.4); PHOSPHORUS 3.8 mg/dL (2.5-4.9)
[2023-04-25 08:00] VITALS: BP 126/70; TEMP 98.6; O2SAT 92
[2023-04-25] MEDS: BLOOD SUGAR DIAGNOSTIC 1 EACH STRIP IN SCH ×2 (08:15→12:24)
[2023-04-25] MEDS: DIVALPROEX SODIUM 125 MG CAP.SPRINK PO SCH ×2 (08:45→14:06)
[2023-04-25] MEDS: risperiDONE 1 MG TABLET PO SCH ×2 (08:46→14:05)
[2023-04-25] MEDS: THIAMINE HCL 100 MG TABLET PO SCH (08:46)
[2023-04-25] MEDS: DOCUSATE SODIUM 100 MG CAPSULE PO SCH (08:46)
[2023-04-25] MEDS: PANTOPRAZOLE 40 MG/PACK PACK PO SCH (08:46)
[2023-04-25] MEDS: APIXABAN 5 MG TABLET PO SCH (08:47)
[2023-04-25] MEDS: GLUCERNA SHAKE 237 ML CAN PO SCH (08:48)
[2023-04-25] MEDS: THERAHONEY GEL 1.5 OZ TUBE TP SCH (14:30)
[2023-04-25] MEDS ORDERED: APIXABAN 5 MG TABLET PO SCH ×2 (17:00)
== END 2023-04-25 15:41 | DRG 698 ==
LOC: ER 09:25 → MED 12:28 → MEDSG1 04-22 14:27
PROVIDERS: ADMIT Nurse Practitioner Acute Care; ATTEND Nurse Practitioner Family
DX: N13.9 Obstructive and reflux uropathy, unspecified (principal); G93.41 Metabolic encephalopathy; U07.1 COVID-19; N17.9 Acute kidney failure, unspecified; I82.412 Acute embolism and thrombosis of left femoral vein; F03.93 Unspecified dementia, unspecified severity, with mood disturbance; N32.0 Bladder-neck obstruction; I11.0 Hypertensive heart disease with heart failure; I50.9 Heart failure, unspecified; Z66 Do not resuscitate; F32.A Depression, unspecified; D63.8 Anemia in other chronic diseases classified elsewhere; Z86.718 Personal history of other venous thrombosis and embolism; Z79.899 Other long term (current) drug therapy; Z79.01 Long term (current) use of anticoagulants; Z78.9 Other specified health status; L89.156 Pressure-induced deep tissue damage of sacral region; R33.9 Retention of urine, unspecified; N28.89 Other specified disorders of kidney and ureter; E11.9 Type 2 diabetes mellitus without complications; E86.0 Dehydration; L89.159 Pressure ulcer of sacral region, unspecified stage; Z87.440 Personal history of urinary (tract) infections; L89.326 Pressure-induced deep tissue damage of left buttock
CPT/HCPCS: 36415; 71045-TC; 76770-TC; 80048-TC; 80061-TC; 80076-TC; 81001; 82962-TC; 83735-TC; 84100-TC; 84484-TC; 85025-TC; 85027-TC; 85378-TC; 86140-TC; 87081-TC; 93970-TC; A4223; C9113; G0378; J1815; J7030; J7040

== ENCOUNTER 2023-05-04 17:20 | Inpatient (IN) | payer MEDICARE, OTHER ==
[~2023-05-04] VITALS: Ht 180.3 cm; Wt 80.7 kg
[~2023-05-04 17:20] MED LIST changes: +ACET-2605 PO; +ALLA266C2 TP; -COLL30OI TP; +FURO-145 PO; +HYDR28.318 TP; +KETO120S5 TP; +PETR113O TP; -QUET25TA PO; -RISP0.2515 PO; +RISP0.5T5 PO
[2023-05-04 18:25] LABS: BASOPHILS % (AUTO) 0.1 % (0.0-2.0); EOSINOPHILS % (AUTO) 0.1 % (0.0-6.0); HEMATOCRIT 28 % (39-51); LYMPHOCYTES # (AUTO) 0.7 K/uL (0.8-4.8); LYMPHOCYTES % (AUTO) 6.2 % (20.0-44.0); MEAN CORPUSCULAR HEMOGLOBIN 26 PG (26.0-33.0); MEAN CORPUSCULAR HGB CONC 32 g/dl (31.0-36.0); MEAN CORPUSCULAR VOLUME 81 fL (80-96); MONOCYTES % (AUTO) 8.4 % (2.0-12.0); NEUTROPHILS # (AUTO) 9.8 K/uL (1.8-8.9); NEUTROPHILS % (AUTO) 85.2 % (43.0-81.0); PLATELET COUNT (AUTO) 416 K/uL (150-450); RED BLOOD CELL COUNT(AUTO) 3.42 MIL/uL (4.5-6.0); RED CELL DISTRIBUTION WIDTH 16.8 % (11.5-15.0); WHITE BLOOD COUNT (AUTO) 11.5 K/uL (4.3-11.0)
[2023-05-04 18:40] LABS: APPEARANCE,URINE CLOUDY (CLEAR); BILIRUBIN,URINE NEGATIVE (NEGATIVE); BLOOD, URINE 3+ Ery/uL (NEGATIVE); COLOR,URINE YELLOW (YELLOW); KETONES,URINE NEGATIVE (NEGATIVE); LEUKOCYTE ESTERASE ,URINE 2+ (NEGATIVE); NITRITE, URINE POSITIVE (NEGATIVE); PROTEIN,URINE 1+ mg/dl (NEGATIVE); UGLUCOSE NEGATIVE (NEGATIVE)
[2023-05-04 18:47] LABS: CALCIUM, SERUM 9.4 mg/dL (8.5-10.1); CARBON DIOXIDE 31 mmol/L (21-32); CHLORIDE 99 mmol/L (98-107); CREATININE 1.3 mg/dL (0.6-1.3); GLUCOSE 109 mg/dL (74-106); INR 1.15 (0.91-1.10); PARTIAL THROMBOPLASTIN TIME 32.7 SEC (24.3-34.3); POTASSIUM 4.4 mmol/L (3.5-5.1); PROTHROMBIN TIME 12.1 SECS (9.2-11.1); SODIUM SERUM 137 mmol/L (136-145); UREA NITROGEN, BLOOD 17 mg/dL (7-18)
[2023-05-04 18:53] LABS: ALANINE AMINOTRANSFERASE 11 U/L (12-78); ALBUMIN 2.5 g/dL (3.4-5.0); ALKALINE PHOSPHATASE 82 U/L (46-116); ASPARTATE AMINOTRANSFERASE 14 U/L (15-37); BILIRUBIN,DIRECT 0.1 mg/dL (0.0-0.2); BILIRUBIN,TOTAL 0.3 mg/dL (0.2-1.0); LACTIC ACID 1.8 mmol/L (0.4-2.0); TOTAL PROTEIN, SERUM 7.2 g/dL (6.4-8.2)
[2023-05-04 19:33] LABS: ADD URINE CULTURE YES; BACTERIA,URINE 3+ /HPF (None Seen); RBC,URINE 51-80 /HPF (0-2); SQUAMOUS EPITHELIAL CELL,UR 0-2 /HPF (None Seen); WBC,URINE 21-50 /HPF (0-3)
[2023-05-04] MEDS ORDERED: ACETAMINOPHEN ES 500 MG TABLET PO ONE (20:00)
[2023-05-04] MEDS ORDERED: IV NS 0.9% 1,000 ML BAG IV ONE (20:00)
[2023-05-04] MEDS ORDERED: CEFTRIAXONE 1GM BAG (ER ONLY) 50 ML IV ONE ×2 (20:00→20:16)
[2023-05-04] MEDS ORDERED: ACETAMINOPHEN ES 500 MG TABLET ONE (20:15)
[2023-05-04] MEDS ORDERED: KETOCONAZOLE SHAMPOO 120 ML BOTTLE TP SCH (21:00)
[2023-05-04] MEDS ORDERED: MAGNESIUM HYDROXIDE 30 ML UDC PO PRN (21:30)
[2023-05-04] MEDS ORDERED: Z GUARD REMEDY 4 OZ OINT TP PRN (21:30)
[2023-05-04] MEDS ORDERED: MAG HYDROX/AL HYDROX/SIMETH 30 ML UDC PO PRN (21:30)
[2023-05-04] MEDS ORDERED: ONDANSETRON HCL/PF 4 MG/2 ML VIAL IVP PRN (21:30)
[2023-05-04] MEDS ORDERED: IV NS 0.9% 1,000 ML IV PRN (21:30)
[2023-05-04] MEDS ORDERED: ZOLPIDEM TARTRATE 5 MG TABLET PO PRN (21:30)
[2023-05-04 22:30] VITALS: BP 116/54; TEMP 98.6; O2SAT 94
[2023-05-04] MEDS: TRAZODONE 50 MG TABLET PO SCH (23:02)
[2023-05-05 04:00] VITALS: BP 96/60; TEMP 98.1; O2SAT 97
[2023-05-05] MEDS ORDERED: IV NS 0.9% 500 ML IV ONE (05:30)
[2023-05-05 05:36] VITALS: BP 105/57
[2023-05-05 07:00] VITALS: BP 109/44; TEMP 103; O2SAT 91
[2023-05-05 07:35] LABS: BASOPHILS % (AUTO) 0.2 % (0.0-2.0); HEMATOCRIT 25 % (39-51); HEMOGLOBIN 8.3 g/dL (13.5-17.5); LYMPHOCYTES # (AUTO) 0.9 K/uL (0.8-4.8); LYMPHOCYTES % (AUTO) 8.7 % (20.0-44.0); MEAN CORPUSCULAR HEMOGLOBIN 27 PG (26.0-33.0); MEAN CORPUSCULAR HGB CONC 33 g/dl (31.0-36.0); MEAN CORPUSCULAR VOLUME 81 fL (80-96); MONOCYTES # (AUTO) 1.2 K/uL (0.1-1.30); MONOCYTES % (AUTO) 11.1 % (2.0-12.0); NEUTROPHILS # (AUTO) 8.6 K/uL (1.8-8.9); PLATELET COUNT (AUTO) 338 K/uL (150-450); RED BLOOD CELL COUNT(AUTO) 3.09 MIL/uL (4.5-6.0); RED CELL DISTRIBUTION WIDTH 16.8 % (11.5-15.0); WHITE BLOOD COUNT (AUTO) 10.8 K/uL (4.3-11.0)
[2023-05-05 07:47] LABS: CALCIUM, SERUM 8.7 mg/dL (8.5-10.1); CREATININE 1.1 mg/dL (0.6-1.3); MAGNESIUM 1.6 mg/dL (1.8-2.4); PHOSPHORUS 3.1 mg/dL (2.5-4.9); POTASSIUM 4.1 mmol/L (3.5-5.1)
[2023-05-05] MEDS: risperiDONE 0.25 MG TABLET PO SCH ×3 (08:29→16:31)
[2023-05-05] MEDS: MULTIVITAMINS,THERAGRAN 1 UDTAB TABLET PO SCH (08:29)
[2023-05-05] MEDS: DIVALPROEX SODIUM 125 MG CAP.SPRINK PO SCH ×3 (08:29→16:32)
[2023-05-05] MEDS: DOCUSATE SODIUM 100 MG CAPSULE PO SCH (08:29)
[2023-05-05] MEDS: ACETAMINOPHEN 325 MG TABLET PO PRN ×2 (08:30→16:56)
[2023-05-05] MEDS: PROSOURCE / PROSTAT (PYXIS) 30 ML UDC PO SCH ×2 (08:30→16:36)
[2023-05-05] MEDS: THIAMINE HCL 100 MG TABLET PO SCH (08:30)
[2023-05-05] MEDS: PANTOPRAZOLE 40 MG TABLET.DR PO SCH (08:30)
[2023-05-05] MEDS: ASCORBIC ACID 500 MG TABLET PO SCH (08:30)
[2023-05-05] MEDS: APIXABAN 5 MG TABLET PO SCH ×2 (08:32→16:32)
[2023-05-05] MEDS: FUROSEMIDE 20 MG TABLET PO SCH ×2 (08:32→11:01)
[2023-05-05] MEDS ORDERED: Medication Not On Formulary EA (Allantoin (Remedy Zguard 2 Oz Oint) 2 OZ) TP SCH (09:00)
[2023-05-05] MEDS ORDERED: GLUC1KIT IM (09:32)
[2023-05-05] MEDS ORDERED: ACET-868 PO (09:32)
[2023-05-05] MEDS ORDERED: INSU100V28 SQ (09:32)
[2023-05-05] MEDS ORDERED: ZINC1CAP2 PO (09:32)
[2023-05-05] MEDS ORDERED: GUAI100S9 PO (09:32)
[2023-05-05] MEDS ORDERED: DEXT38GE12 PO (09:32)
[2023-05-05] MEDS ORDERED: CRAN3875 PO (09:32)
[2023-05-05] MEDS ORDERED: MAGNESIUM OXIDE 400 MG TABLET PO ONE (11:00)
[2023-05-05] MEDS: THERAHONEY GEL 1.5 OZ TUBE TP SCH (11:10)
[2023-05-05 11:30] VITALS: BP 120/60; TEMP 98.9; O2SAT 97
[2023-05-05 16:00] VITALS: BP 106/54; TEMP 100.2; O2SAT 96
[2023-05-05] MEDS: FOLIC ACID 1 MG TABLET PO SCH (17:05)
[2023-05-05 20:00] VITALS: BP 101/61; TEMP 98.6; O2SAT 96
[2023-05-05] MEDS: CEFTRIAXONE 1 G in IV D5W 50 ML IV SCH (20:25)
[2023-05-05] MEDS: TRAZODONE 50 MG TABLET PO SCH (21:18)
[2023-05-06] VITALS: BP 114/62; TEMP 98.6; O2SAT 96
[2023-05-06 04:00] VITALS: BP 126/75; TEMP 97.8; O2SAT 95
[2023-05-06 06:15] LABS: BASOPHILS % (AUTO) 0.3 % (0.0-2.0); HEMATOCRIT 27 % (39-51); HEMOGLOBIN 8.7 g/dL (13.5-17.5); LYMPHOCYTES # (AUTO) 1.3 K/uL (0.8-4.8); LYMPHOCYTES % (AUTO) 12.1 % (20.0-44.0); MEAN CORPUSCULAR HEMOGLOBIN 26 PG (26.0-33.0); MEAN CORPUSCULAR HGB CONC 32 g/dl (31.0-36.0); MEAN CORPUSCULAR VOLUME 82 fL (80-96); MONOCYTES # (AUTO) 1.3 K/uL (0.1-1.30); MONOCYTES % (AUTO) 11.8 % (2.0-12.0); NEUTROPHILS # (AUTO) 8.4 K/uL (1.8-8.9); NEUTROPHILS % (AUTO) 75.8 % (43.0-81.0); PLATELET COUNT (AUTO) 321 K/uL (150-450); RED BLOOD CELL COUNT(AUTO) 3.32 MIL/uL (4.5-6.0); RED CELL DISTRIBUTION WIDTH 17.3 % (11.5-15.0)
[2023-05-06 06:45] LABS: ALBUMIN 2.1 g/dL (3.4-5.0); BILIRUBIN,TOTAL 0.3 mg/dL (0.2-1.0); CALCIUM, SERUM 9.1 mg/dL (8.5-10.1); CREATININE 1.1 mg/dL (0.6-1.3); MAGNESIUM 1.9 mg/dL (1.8-2.4); PHOSPHORUS 4.2 mg/dL (2.5-4.9); POTASSIUM 3.8 mmol/L (3.5-5.1); TOTAL PROTEIN, SERUM 6.5 g/dL (6.4-8.2)
[2023-05-06 07:00] VITALS: BP 96/47; TEMP 99.3; O2SAT 95
[2023-05-06] MEDS: DIVALPROEX SODIUM 125 MG CAP.SPRINK PO SCH ×3 (08:31→16:22)
[2023-05-06] MEDS: MULTIVITAMINS,THERAGRAN 1 UDTAB TABLET PO SCH (08:31)
[2023-05-06] MEDS: THIAMINE HCL 100 MG TABLET PO SCH (08:31)
[2023-05-06] MEDS: risperiDONE 0.25 MG TABLET PO SCH ×3 (08:31→16:22)
[2023-05-06] MEDS: DOCUSATE SODIUM 100 MG CAPSULE PO SCH (08:31)
[2023-05-06] MEDS: PANTOPRAZOLE 40 MG TABLET.DR PO SCH (08:31)
[2023-05-06] MEDS: APIXABAN 5 MG TABLET PO SCH ×2 (08:32→16:22)
[2023-05-06] MEDS: ASCORBIC ACID 500 MG TABLET PO SCH (08:32)
[2023-05-06] MEDS: PROSOURCE / PROSTAT (PYXIS) 30 ML UDC PO SCH ×2 (08:32→16:22)
[2023-05-06] MEDS: THERAHONEY GEL 1.5 OZ TUBE TP SCH (08:33)
[2023-05-06] MEDS: ACETAMINOPHEN 325 MG TABLET PO PRN (10:23)
[2023-05-06 11:30] VITALS: BP 101/49; TEMP 99.8; O2SAT 96
[2023-05-06 16:00] VITALS: BP 90/44; TEMP 98.8; O2SAT 94
[2023-05-06] MEDS: FOLIC ACID 1 MG TABLET PO SCH (17:06)
[2023-05-06] MEDS: CEFTRIAXONE 1 G in IV D5W 50 ML IV SCH (19:40)
[2023-05-06 20:00] VITALS: BP 109/52; TEMP 100.5; O2SAT 94
[2023-05-06] MEDS: TRAZODONE 50 MG TABLET PO SCH (22:00)
[2023-05-07] VITALS: BP 107/53; TEMP 100; O2SAT 95
[2023-05-07 05:00] VITALS: BP 102/55; TEMP 99; O2SAT 95
[2023-05-07 05:58] LABS: BASOPHILS % (AUTO) 0.3 % (0.0-2.0); HEMATOCRIT 26 % (39-51); HEMOGLOBIN 8.5 g/dL (13.5-17.5); LYMPHOCYTES # (AUTO) 1.8 K/uL (0.8-4.8); LYMPHOCYTES % (AUTO) 17.8 % (20.0-44.0); MEAN CORPUSCULAR HEMOGLOBIN 27 PG (26.0-33.0); MEAN CORPUSCULAR HGB CONC 32 g/dl (31.0-36.0); MEAN CORPUSCULAR VOLUME 83 fL (80-96); MONOCYTES # (AUTO) 1.3 K/uL (0.1-1.30); MONOCYTES % (AUTO) 12.8 % (2.0-12.0); NEUTROPHILS % (AUTO) 69.1 % (43.0-81.0); PLATELET COUNT (AUTO) 313 K/uL (150-450); RED BLOOD CELL COUNT(AUTO) 3.17 MIL/uL (4.5-6.0); RED CELL DISTRIBUTION WIDTH 17.1 % (11.5-15.0); WHITE BLOOD COUNT (AUTO) 10.2 K/uL (4.3-11.0)
[2023-05-07 06:09] LABS: ALBUMIN 2.1 g/dL (3.4-5.0); BILIRUBIN,TOTAL 0.3 mg/dL (0.2-1.0); CREATININE 1.1 mg/dL (0.6-1.3); PHOSPHORUS 3.9 mg/dL (2.5-4.9); POTASSIUM 3.9 mmol/L (3.5-5.1); TOTAL PROTEIN, SERUM 6.5 g/dL (6.4-8.2)
[2023-05-07 08:00] VITALS: BP 111/60; TEMP 99.8; O2SAT 98
[2023-05-07] MEDS: MULTIVITAMINS,THERAGRAN 1 UDTAB TABLET PO SCH (08:24)
[2023-05-07] MEDS: FUROSEMIDE 20 MG TABLET PO SCH (08:25)
[2023-05-07] MEDS: DOCUSATE SODIUM 100 MG CAPSULE PO SCH (08:25)
[2023-05-07] MEDS: ASCORBIC ACID 500 MG TABLET PO SCH (08:25)
[2023-05-07] MEDS: PANTOPRAZOLE 40 MG TABLET.DR PO SCH (08:25)
[2023-05-07] MEDS: risperiDONE 0.25 MG TABLET PO SCH ×3 (08:25→16:12)
[2023-05-07] MEDS: THIAMINE HCL 100 MG TABLET PO SCH (08:25)
[2023-05-07] MEDS: DIVALPROEX SODIUM 125 MG CAP.SPRINK PO SCH ×3 (08:25→16:12)
[2023-05-07] MEDS: PROSOURCE / PROSTAT (PYXIS) 30 ML UDC PO SCH ×2 (08:26→16:14)
[2023-05-07] MEDS: APIXABAN 5 MG TABLET PO SCH ×2 (08:26→16:13)
[2023-05-07] MEDS ORDERED: KETOCONAZOLE SHAMPOO 120 ML BOTTLE TP SCH (09:00)
[2023-05-07] MEDS: THERAHONEY GEL 1.5 OZ TUBE TP SCH (09:04)
[2023-05-07 12:00] VITALS: BP 105/56; TEMP 97.5; O2SAT 98
[2023-05-07 16:00] VITALS: BP 116/60; TEMP 100.6; O2SAT 98
[2023-05-07] MEDS: ACETAMINOPHEN 325 MG TABLET PO PRN (16:12)
[2023-05-07] MEDS: FOLIC ACID 1 MG TABLET PO SCH (17:18)
[2023-05-07 20:00] VITALS: BP 107/67; TEMP 99; O2SAT 95
[2023-05-07] MEDS: CEFTRIAXONE 1 G in IV D5W 50 ML IV SCH (20:53)
[2023-05-07] MEDS: TRAZODONE 50 MG TABLET PO SCH (22:23)
[2023-05-08] VITALS: BP 117/53; TEMP 100; TEMP 98.5; O2SAT 94
[2023-05-08 04:00] VITALS: BP 115/64; TEMP 98.2; O2SAT 97
[2023-05-08 06:26] LABS: BASOPHILS % (AUTO) 0.3 % (0.0-2.0); EOSINOPHILS % (AUTO) 0.1 % (0.0-6.0); HEMATOCRIT 23 % (39-51); HEMOGLOBIN 7.6 g/dL (13.5-17.5); LYMPHOCYTES # (AUTO) 1.2 K/uL (0.8-4.8); LYMPHOCYTES % (AUTO) 14.5 % (20.0-44.0); MEAN CORPUSCULAR HEMOGLOBIN 27 PG (26.0-33.0); MEAN CORPUSCULAR HGB CONC 33 g/dl (31.0-36.0); MEAN CORPUSCULAR VOLUME 81 fL (80-96); MONOCYTES # (AUTO) 1.2 K/uL (0.1-1.30); MONOCYTES % (AUTO) 13.6 % (2.0-12.0); NEUTROPHILS # (AUTO) 6.2 K/uL (1.8-8.9); NEUTROPHILS % (AUTO) 71.5 % (43.0-81.0); PLATELET COUNT (AUTO) 281 K/uL (150-450); RED BLOOD CELL COUNT(AUTO) 2.86 MIL/uL (4.5-6.0); RED CELL DISTRIBUTION WIDTH 16.6 % (11.5-15.0); WHITE BLOOD COUNT (AUTO) 8.6 K/uL (4.3-11.0)
[2023-05-08 07:28] LABS: BILIRUBIN,TOTAL 0.4 mg/dL (0.2-1.0); CALCIUM, SERUM 8.9 mg/dL (8.5-10.1); CREATININE 1.1 mg/dL (0.6-1.3); MAGNESIUM 1.8 mg/dL (1.8-2.4); PHOSPHORUS 3.8 mg/dL (2.5-4.9); TOTAL PROTEIN, SERUM 6.3 g/dL (6.4-8.2)
[2023-05-08 08:00] VITALS: BP 112/63; TEMP 100.6; O2SAT 93
[2023-05-08] MEDS: PANTOPRAZOLE 40 MG TABLET.DR PO SCH (08:45)
[2023-05-08] MEDS: MULTIVITAMINS,THERAGRAN 1 UDTAB TABLET PO SCH (08:45)
[2023-05-08] MEDS: DOCUSATE SODIUM 100 MG CAPSULE PO SCH (08:45)
[2023-05-08] MEDS: FUROSEMIDE 20 MG TABLET PO SCH (08:45)
[2023-05-08] MEDS: ASCORBIC ACID 500 MG TABLET PO SCH (08:45)
[2023-05-08] MEDS: risperiDONE 0.25 MG TABLET PO SCH ×3 (08:45→17:09)
[2023-05-08] MEDS: THIAMINE HCL 100 MG TABLET PO SCH (08:45)
[2023-05-08] MEDS: DIVALPROEX SODIUM 125 MG CAP.SPRINK PO SCH ×3 (08:45→17:09)
[2023-05-08] MEDS: APIXABAN 5 MG TABLET PO SCH ×2 (08:46→17:10)
[2023-05-08] MEDS: PROSOURCE / PROSTAT (PYXIS) 30 ML UDC PO SCH ×2 (08:58→17:30)
[2023-05-08] MEDS: THERAHONEY GEL 1.5 OZ TUBE TP SCH (08:58)
[2023-05-08 10:00] VITALS: BP 112/63; TEMP 100.6; O2SAT 93
[2023-05-08 12:00] VITALS: BP 114/56; TEMP 99.9; O2SAT 96
[2023-05-08 16:00] VITALS: BP 101/54; TEMP 99.9; O2SAT 96
[2023-05-08] MEDS ORDERED: CEFT1VIA15 IV (16:57)
[2023-05-08] MEDS: FOLIC ACID 1 MG TABLET PO SCH (17:10)
[2023-05-08] MEDS: CEFTRIAXONE 1 G in IV D5W 50 ML IV SCH (20:00)
== END 2023-05-08 20:50 | DRG 871 ==
LOC: ER 17:26 → TELE 21:40
PROVIDERS: ADMIT Nurse Practitioner Acute Care; ATTEND Nurse Practitioner Acute Care
DX: A41.9 Sepsis, unspecified organism (principal); G93.41 Metabolic encephalopathy; E44.0 Moderate protein-calorie malnutrition; N39.0 Urinary tract infection, site not specified; F03.90 Unspecified dementia, unspecified severity, without behavioral disturbance, psychotic disturbance, mood disturbance, and anxiety; I11.0 Hypertensive heart disease with heart failure; I50.9 Heart failure, unspecified; N13.9 Obstructive and reflux uropathy, unspecified; D64.9 Anemia, unspecified; Z79.01 Long term (current) use of anticoagulants; Z79.899 Other long term (current) drug therapy; B96.89 Other specified bacterial agents as the cause of diseases classified elsewhere; L89.156 Pressure-induced deep tissue damage of sacral region; E88.09 Other disorders of plasma-protein metabolism, not elsewhere classified; Z86.718 Personal history of other venous thrombosis and embolism; E11.9 Type 2 diabetes mellitus without complications; F29 Unspecified psychosis not due to a substance or known physiological condition; R53.1 Weakness; Z79.4 Long term (current) use of insulin
CPT/HCPCS: 36415; 71045-TC; 80048-TC; 80053-TC; 80076-TC; 81001; 83605-TC; 83735-TC; 84100-TC; 84484-TC; 85025-TC; 85730-TC; 87040-TC; 87081-TC; 87086-TC; 92526; 92611-TC; 97110-TC; 97112-TC; 97116-TC; 97530-TC; A4223; A6403; G0378; J0696; J7030; J7040; J7050; J7060

== ENCOUNTER 2023-08-05 09:55 | Emergency (ER) | payer MEDICARE, OTHER ==
[~2023-08-05] VITALS: Ht 170.2 cm; Wt 83.9 kg
[~2023-08-05 09:55] MED LIST changes: -ALLA266C2 TP; +CEFT1VIA15 IV; +CRAN3875 PO; +DEXT38GE12 PO; +GLUC1KIT IM; +GUAI100S9 PO; -HYDR28.318 TP; +INSU100V28 SQ; -PETR113O TP; +ZINC1CAP2 PO
[2023-08-05 10:57] LABS: BASOPHILS % (AUTO) 0.5 % (0.0-2.0); EOSINOPHILS # (AUTO) 0.3 K/uL (0.0-0.7); EOSINOPHILS % (AUTO) 3.3 % (0.0-6.0); HEMATOCRIT 36 % (39-51); HEMOGLOBIN 11.6 g/dL (13.5-17.5); LYMPHOCYTES # (AUTO) 1.7 K/uL (0.8-4.8); LYMPHOCYTES % (AUTO) 19.1 % (20.0-44.0); MEAN CORPUSCULAR HEMOGLOBIN 26 PG (26.0-33.0); MEAN CORPUSCULAR HGB CONC 32 g/dl (31.0-36.0); MEAN CORPUSCULAR VOLUME 79 fL (80-96); MONOCYTES % (AUTO) 10.9 % (2.0-12.0); NEUTROPHILS # (AUTO) 5.9 K/uL (1.8-8.9); NEUTROPHILS % (AUTO) 66.2 % (43.0-81.0); PLATELET COUNT (AUTO) 276 K/uL (150-450); RED BLOOD CELL COUNT(AUTO) 4.51 MIL/uL (4.5-6.0); RED CELL DISTRIBUTION WIDTH 17.2 % (11.5-15.0)
[2023-08-05 11:14] LABS: CALCIUM, SERUM 9.4 mg/dL (8.5-10.1); CARBON DIOXIDE 31 mmol/L (21-32); CHLORIDE 103 mmol/L (98-107); CREATININE 0.8 mg/dL (0.6-1.3); GLUCOSE 122 mg/dL (74-106); POTASSIUM 4.4 mmol/L (3.5-5.1); SODIUM SERUM 137 mmol/L (136-145); UREA NITROGEN, BLOOD 18 mg/dL (7-18)
[2023-08-05 12:54] VITALS: BP 104/63; TEMP 98.7; O2SAT 98
== END 2023-08-05 13:05 | disposition home health service (06) ==
LOC: ER 10:04
DX: R07.89 Other chest pain (principal); M54.50 Low back pain, unspecified; F03.90 Unspecified dementia, unspecified severity, without behavioral disturbance, psychotic disturbance, mood disturbance, and anxiety; I11.0 Hypertensive heart disease with heart failure; I50.9 Heart failure, unspecified; I48.91 Unspecified atrial fibrillation; E11.9 Type 2 diabetes mellitus without complications; F31.9 Bipolar disorder, unspecified; Z79.4 Long term (current) use of insulin; Z79.899 Other long term (current) drug therapy
CPT/HCPCS: 36415; 71045-TC; 72131-TC; 80048-TC; 84484-TC; 85025-TC

== ENCOUNTER 2023-09-05 00:06 | Inpatient (IN) | payer MEDICARE, OTHER ==
[~2023-09-05] VITALS: Ht 170.2 cm; Wt 78.5 kg
[2023-09-05 00:55] LABS: BASOPHILS % (AUTO) 0.3 % (0.0-2.0); EOSINOPHILS % (AUTO) 0.1 % (0.0-6.0); HEMATOCRIT 34 % (39-51); HEMOGLOBIN 11.3 g/dL (13.5-17.5); LYMPHOCYTES # (AUTO) 0.8 K/uL (0.8-4.8); LYMPHOCYTES % (AUTO) 9.6 % (20.0-44.0); MEAN CORPUSCULAR HEMOGLOBIN 27 PG (26.0-33.0); MEAN CORPUSCULAR HGB CONC 33 g/dl (31.0-36.0); MEAN CORPUSCULAR VOLUME 81 fL (80-96); MONOCYTES # (AUTO) 1.2 K/uL (0.1-1.30); NEUTROPHILS # (AUTO) 6.7 K/uL (1.8-8.9); PLATELET COUNT (AUTO) 151 K/uL (150-450); RED CELL DISTRIBUTION WIDTH 19.1 % (11.5-15.0); WHITE BLOOD COUNT (AUTO) 8.7 K/uL (4.3-11.0)
[2023-09-05] MEDS ORDERED: LIDOCAINE 2% JEL UROJET 10 ML MM ONE (01:11)
[2023-09-05 01:12] LABS: ALANINE AMINOTRANSFERASE 15 U/L (12-78); ALBUMIN 2.5 g/dL (3.4-5.0); ALKALINE PHOSPHATASE 75 U/L (46-116); ASPARTATE AMINOTRANSFERASE 13 U/L (15-37); BILIRUBIN,DIRECT 0.4 mg/dL (0.0-0.2); BILIRUBIN,TOTAL 1.6 mg/dL (0.2-1.0); CALCIUM, SERUM 8.8 mg/dL (8.5-10.1); CARBON DIOXIDE 30 mmol/L (21-32); CHLORIDE 104 mmol/L (98-107); CREATININE 1.3 mg/dL (0.6-1.3); GLUCOSE 110 mg/dL (74-106); POTASSIUM 3.9 mmol/L (3.5-5.1); SODIUM SERUM 142 mmol/L (136-145); TOTAL PROTEIN, SERUM 6.8 g/dL (6.4-8.2); UREA NITROGEN, BLOOD 28 mg/dL (7-18)
[2023-09-05] MEDS ORDERED: ACETAMINOPHEN 650 MG/SUPP.RECT RC ONE (01:13)
[2023-09-05 01:14] LABS: LACTIC ACID 1.5 mmol/L (0.4-2.0)
[2023-09-05] MEDS: ACETAMINOPHEN 650 MG/SUPP.RECT RC ONE (01:24)
[2023-09-05 01:25] LABS: INR 1.12 (0.91-1.10); PARTIAL THROMBOPLASTIN TIME 44.6 SEC (24.3-34.3); PROTHROMBIN TIME 11.8 SECS (9.2-11.1)
[2023-09-05 01:59] LABS: APPEARANCE,URINE SLIGHTLY CLOUDY (CLEAR); BILIRUBIN,URINE NEGATIVE (NEGATIVE); BLOOD, URINE 2+ Ery/uL (NEGATIVE); COLOR,URINE DARK YELLOW (YELLOW); KETONES,URINE TRACE mg/dL (NEGATIVE); LEUKOCYTE ESTERASE ,URINE 3+ (NEGATIVE); NITRITE, URINE NEGATIVE (NEGATIVE); PROTEIN,URINE 1+ mg/dl (NEGATIVE); UGLUCOSE NEGATIVE (NEGATIVE)
[2023-09-05 02:00] LABS: ADD URINE CULTURE YES; BACTERIA,URINE Few /HPF (None Seen); SQUAMOUS EPITHELIAL CELL,UR Rare /HPF (None Seen)
[2023-09-05] MEDS ORDERED: CEFTRIAXONE 1GM BAG (ER ONLY) 50 ML IV ONE (02:38)
[2023-09-05] MEDS: CEFTRIAXONE 1GM BAG (ER ONLY) 1 GM/50 ML PIGGYBACK IV ONE (02:44)
[2023-09-05] MEDS ORDERED: DEXTROSE 50%-WATER 50 ML DISP.SYRIN IV PRN (04:30)
[2023-09-05] MEDS ORDERED: Z GUARD REMEDY 4 OZ OINT TP PRN (04:30)
[2023-09-05] MEDS ORDERED: MAGNESIUM HYDROXIDE 30 ML UDC PO PRN (04:30)
[2023-09-05] MEDS ORDERED: ONDANSETRON HCL/PF 4 MG/2 ML VIAL IVP PRN (04:30)
[2023-09-05] MEDS: IV 1/2NS 1000 ML 1,000 ML IV PRN (07:05)
[2023-09-05] MEDS: BLOOD SUGAR DIAGNOSTIC 1 EACH STRIP IN SCH (07:59)
[2023-09-05] MEDS: PANTOPRAZOLE 40 MG TABLET.DR PO SCH (07:59)
[2023-09-05] MEDS ORDERED: LOPE2TAB25 PO (08:07)
[2023-09-05] MEDS: DIVALPROEX SODIUM 125 MG CAP.SPRINK PO SCH (08:25)
[2023-09-05] MEDS: risperiDONE 0.25 MG TABLET PO SCH (08:25)
[2023-09-05] MEDS: MULTIVIT W/MINERALS 1 TAB TABLET PO SCH (08:25)
[2023-09-05] MEDS: DOCUSATE SODIUM 100 MG CAPSULE PO SCH (08:25)
[2023-09-05] MEDS: APIXABAN 5 MG TABLET PO SCH (08:26)
[2023-09-05] MEDS: THIAMINE HCL 100 MG TABLET PO SCH (08:27)
[2023-09-05] MEDS: ACETAMINOPHEN 325 MG TABLET PO PRN (08:27)
[2023-09-05] MEDS: ZINC SULFATE 220 MG CAPSULE PO SCH (08:27)
[2023-09-05] MEDS: ASCORBIC ACID 500 MG TABLET PO SCH (08:27)
[2023-09-05] MEDS: INSULIN REGULAR, HUMAN 100 UNIT/ML 3 ML VIAL SQ PRN (08:28)
[2023-09-05] MEDS: PROSOURCE / PROSTAT (PYXIS) 30 ML UDC PO SCH ×2 (08:29→16:43)
[2023-09-05] MEDS: FOLIC ACID 1 MG TABLET PO SCH (18:06)
[2023-09-05 19:06] LABS: CREATININE, URINE 145.6 MG/DL (30.0-125.0); URINE TOTAL PROTEIN 124.9 mg/dL (0-11.9)
[2023-09-05 20:00] VITALS: BP 120/62; TEMP 99.5; O2SAT 92
[2023-09-05] MEDS ORDERED: CEFEPIME 1 GM in IV D5W 50 ML IV SCH (20:00)
[2023-09-05] MEDS: CEFEPIME 2 GM in IV D5W 100 ML IV SCH (20:49)
[2023-09-05] MEDS: TRAZODONE 50 MG TABLET PO SCH (21:10)
[2023-09-06] VITALS: BP 100/56; TEMP 99.1; O2SAT 99
[2023-09-06] MEDS ORDERED: CEFTRIAXONE 1 G in IV D5W 50 ML IV SCH (03:00)
[2023-09-06 04:00] VITALS: BP 109/59; TEMP 99.7; O2SAT 97
[2023-09-06 07:06] LABS: BASOPHILS % (AUTO) 0.1 % (0.0-2.0); EOSINOPHILS # (AUTO) 0.1 K/uL (0.0-0.7); HEMATOCRIT 31 % (39-51); HEMOGLOBIN 10.6 g/dL (13.5-17.5); LYMPHOCYTES # (AUTO) 0.7 K/uL (0.8-4.8); LYMPHOCYTES % (AUTO) 8.9 % (20.0-44.0); MEAN CORPUSCULAR HEMOGLOBIN 27 PG (26.0-33.0); MEAN CORPUSCULAR HGB CONC 34 g/dl (31.0-36.0); MEAN CORPUSCULAR VOLUME 80 fL (80-96); MONOCYTES # (AUTO) 1.5 K/uL (0.1-1.30); MONOCYTES % (AUTO) 18.3 % (2.0-12.0); NEUTROPHILS # (AUTO) 5.8 K/uL (1.8-8.9); NEUTROPHILS % (AUTO) 71.7 % (43.0-81.0); PLATELET COUNT (AUTO) 139 K/uL (150-450); RED BLOOD CELL COUNT(AUTO) 3.91 MIL/uL (4.5-6.0); RED CELL DISTRIBUTION WIDTH 18.6 % (11.5-15.0); WHITE BLOOD COUNT (AUTO) 8.1 K/uL (4.3-11.0)
[2023-09-06 07:07] LABS: CALCIUM, SERUM 8.4 mg/dL (8.5-10.1); CREATININE 0.9 mg/dL (0.6-1.3); MAGNESIUM 1.9 mg/dL (1.8-2.4); PHOSPHORUS 3.1 mg/dL (2.5-4.9); POTASSIUM 3.4 mmol/L (3.5-5.1)
[2023-09-06 08:00] VITALS: BP 104/60; TEMP 98.2; O2SAT 93
[2023-09-06 09:18] LABS: BASOPHILS % (MANUAL) 0 % (0.0-2.0); EOSINOPHILS % (MANUAL) 1 % (0-4); LYMPHOCYTES % (MANUAL) 6 % (16-48); MONOCYTES % (MANUAL) 15 % (0-11.0); NEUTROPHILS % (MANUAL) 78 (42-76); PLATELET ESTIMATE DECREASED
[2023-09-06] MEDS ORDERED: PANTOPRAZOLE 40 MG/PACK PACK PO SCH (10:00)
[2023-09-06] MEDS: POTASSIUM CHLORIDE 20 MEQ POWDER PACKET PO SCH (10:23)
[2023-09-06 12:00] VITALS: BP 101/57; TEMP 98.4; O2SAT 98
[2023-09-06 16:00] VITALS: BP 114/56; TEMP 98.8; O2SAT 93
[2023-09-06 20:00] VITALS: BP 129/63; TEMP 99; O2SAT 96
[2023-09-07] VITALS: BP 129/62; TEMP 98.4; O2SAT 95
[2023-09-07 04:00] VITALS: BP 130/60; TEMP 99; O2SAT 95
[2023-09-07 08:00] VITALS: BP 130/74; TEMP 98.4; O2SAT 95
[2023-09-07 12:00] VITALS: BP 134/72; TEMP 98.2; O2SAT 95
[2023-09-07 16:00] VITALS: BP 137/75; TEMP 99.2; O2SAT 95
[2023-09-07 21:00] VITALS: BP 129/64; TEMP 98.1; O2SAT 99
[2023-09-08] MEDS: TEMAZEPAM 7.5 MG CAPSULE PO PRN (02:21)
[2023-09-08 05:00] VITALS: BP 124/64; TEMP 99; O2SAT 97
[2023-09-08 06:41] LABS: EOSINOPHILS # (AUTO) 0.1 K/uL (0.0-0.7); MEAN CORPUSCULAR VOLUME 79 fL (80-96); MONOCYTES # (AUTO) 1.7 K/uL (0.1-1.30); WHITE BLOOD COUNT (AUTO) 10.3 K/uL (4.3-11.0)
[2023-09-08 06:47] LABS: BASOPHILS % (AUTO) 0.3 % (0.0-2.0); EOSINOPHILS % (AUTO) 1.2 % (0.0-6.0); HEMATOCRIT 33 % (39-51); LYMPHOCYTES # (AUTO) 1.2 K/uL (0.8-4.8); LYMPHOCYTES % (AUTO) 11.8 % (20.0-44.0); MEAN CORPUSCULAR HEMOGLOBIN 27 PG (26.0-33.0); MEAN CORPUSCULAR HGB CONC 34 g/dl (31.0-36.0); MONOCYTES % (AUTO) 16.6 % (2.0-12.0); NEUTROPHILS # (AUTO) 7.2 K/uL (1.8-8.9); NEUTROPHILS % (AUTO) 70.1 % (43.0-81.0); PLATELET COUNT (AUTO) 193 K/uL (150-450); RED BLOOD CELL COUNT(AUTO) 4.13 MIL/uL (4.5-6.0)
[2023-09-08 06:49] LABS: BILIRUBIN,TOTAL 0.8 mg/dL (0.2-1.0); CALCIUM, SERUM 8.7 mg/dL (8.5-10.1); CREATININE 0.9 mg/dL (0.6-1.3); MAGNESIUM 1.8 mg/dL (1.8-2.4); POTASSIUM 3.8 mmol/L (3.5-5.1); TOTAL PROTEIN, SERUM 5.9 g/dL (6.4-8.2)
[2023-09-08 08:00] VITALS: BP 112/66; TEMP 97.9; O2SAT 98
[2023-09-08] MEDS: GLUCERNA SHAKE 237 ML CAN PO SCH (09:06)
[2023-09-08 11:17] LABS: LYMPHOCYTES % (MANUAL) 14 % (16-48); NEUTROPHILS % (MANUAL) 64 (42-76)
[2023-09-08 11:18] LABS: ANISOCYTOSIS 1+; EOSINOPHILS % (MANUAL) 1 % (0-4); MONOCYTES % (MANUAL) 22 % (0-11.0); PLATELET ESTIMATE ADEQUATE
[2023-09-08 11:19] LABS: OVALOCYTES 1+
[2023-09-08 13:00] VITALS: BP 118/70; TEMP 98; O2SAT 98
[2023-09-08 16:36] VITALS: BP 121/69; TEMP 97.5; O2SAT 97
[2023-09-09 08:00] VITALS: BP 96/75; TEMP 99.3; O2SAT 98
[2023-09-09] MEDS: CEFTRIAXONE 1 G in IV D5W 50 ML IV SCH (15:38)
[2023-09-09 16:00] VITALS: BP 112/56; TEMP 98.3; O2SAT 98
[2023-09-09 17:35] VITALS: O2SAT 98
[2023-09-10] VITALS: BP 121/55; TEMP 98.6; O2SAT 98
[2023-09-10 00:59] VITALS: O2SAT 98
[2023-09-10 08:00] VITALS: BP 130/58; TEMP 98.2; O2SAT 100
[2023-09-10 10:27] VITALS: O2SAT 96
== END 2023-09-10 16:37 | DRG 871 ==
LOC: ER 00:10 → TELE1 02:17 → MEDSG1 09-07 09:57
DX: A41.9 Sepsis, unspecified organism (principal); G93.41 Metabolic encephalopathy; N39.0 Urinary tract infection, site not specified; I50.32 Chronic diastolic (congestive) heart failure; F03.93 Unspecified dementia, unspecified severity, with mood disturbance; D68.69 Other thrombophilia; N17.9 Acute kidney failure, unspecified; I11.0 Hypertensive heart disease with heart failure; I48.91 Unspecified atrial fibrillation; D64.9 Anemia, unspecified; E11.9 Type 2 diabetes mellitus without complications; E66.01 Morbid (severe) obesity due to excess calories; F31.9 Bipolar disorder, unspecified; Z79.01 Long term (current) use of anticoagulants; Z79.4 Long term (current) use of insulin; Z87.440 Personal history of urinary (tract) infections; L89.156 Pressure-induced deep tissue damage of sacral region; L89.616 Pressure-induced deep tissue damage of right heel; S80.812A Abrasion, left lower leg, initial encounter; S80.811A Abrasion, right lower leg, initial encounter; X58.XXXA Exposure to other specified factors, initial encounter; Y93.9 Activity, unspecified; Y92.129 Unspecified place in nursing home as the place of occurrence of the external cause; Z79.899 Other long term (current) drug therapy; Z90.79 Acquired absence of other genital organ(s); M89.8X9 Other specified disorders of bone, unspecified site; Z20.822 Contact with and (suspected) exposure to COVID-19; Z66 Do not resuscitate; F10.21 Alcohol dependence, in remission; B96.89 Other specified bacterial agents as the cause of diseases classified elsewhere
CPT/HCPCS: 36415; 71045-TC; 76700-TC; 80048-TC; 80053-TC; 80076-TC; 81001; 82570-TC; 82962-TC; 83605-TC; 83735-TC; 83880; 84100-TC; 84300-TC; 84484-TC; 85025-TC; 85730-TC; 87040-TC; 87081-TC; 87086-TC; 87186-TC; 94760-TC; 94799-TC; G0378; J0692; J0696; J1815; J3490; J7040; J7060